=== PATIENT | female | born 1950 | race Caucasian/White ===

== ENCOUNTER 2020-02-21 15:49 | Inpatient (IN) | payer MEDICARE, OTHER, SELFPAY ==
[2020-02-21] VITALS (9 sets, daily range): BP systolic 113–141; BP diastolic 38–68; PULSE 75–100; RESP 16–22; TEMP 36.7–37.4; O2SAT 100; BMI 29.8
[2020-02-21] MEDS: ondansetron HCL 4 MG/2 ML VIAL IVPUSH ×2 (17:06→20:54)
[2020-02-21] MEDS: 0.9 % Sodium Chloride 1,000 ML 999 ML IVCONT (17:06)
--- NOTE | 2020-02-21 17:06 | ED.NAVMDI ---
HPI - Nausea/Vomiting/Diarrhea General Chief complaint: Nausea/Vomiting/Diarrhea Stated complaint: BODY ACHES, N/V Time Seen by Provider: 02/21/20 16:13 Source: patient Mode of arrival: ambulatory Limitations: no limitations History of Present Illness HPI Narrative: patient been feeling weak nauseated vomiting several times for last 5 days without significant abdominal pain. Patient feels very weak and pale. Constipated for last 1 week also noticed black stool off and on for last few weeks specially last week patient had never had rectal bleeding before had colonoscopies years ago which was negative never had any gastritis never had any blood transfusion the past MD elicited complaint: nausea and vomiting Onset (ago): day(s) (5) Description of vomiting: food contents and watery Associated nausea: Yes Location of pain: none Associated symptoms: malaise, nausea/vomiting and fatigue Related Data Home Medications Medication Instructions Recorded Confirmed gabapentin 1,200 mg PO DAILY 02/21/20 02/21/20 lorazepam 1 mg PO TID PRN 02/21/20 02/21/20 ondansetron 4 mg PO Q8H PRN 02/21/20 02/21/20 quetiapine [Seroquel] 25 mg PO BID PRN 02/21/20 02/21/20 sumatriptan succinate [Imitrex] 100 mg PO DAILY PRN 02/21/20 02/21/20 Allergies Allergy/AdvReac Type Severity Reaction Status Date / Time No Known Allergies Allergy Unverified 01/02/20 16:29 Review of Systems Review of Systems: REVIEW OF SYSTEMS: Pertinent positives and negatives are stated above in the history. GEN: no fevers, chills, fatigue ++ HEENT: no nasal congestion, sore throat, ear pain NEURO: no headache, dizziness, focal weakness PULM: no cough, shortness of breath CV: no chest pain, palpitations, LE edema ABD: no abdominal pain, , diarrhea : no dysuria, urgency, frequency SKIN: no rash ROS otherwise negative x 10 Gastrointestinal: Gastrointestinal: Reports nausea PMFSH Past Medical History Medical History Bipolar 1 disorder Migraine Social History Social History Household Members: Spouse Housing: House Alcohol intake: current Alcohol intake frequency: 0-2 drinks per day Alcohol type: wine Smoking Status: Never smoker Use of substances other than those prescribed or required for medical reasons: Yes Substance Use Type: Marijuana Substance Use Type Other:: Edible gummy Substance Use Frequency: Occasionally Last Used Substance: Unknown Have you been hit, kicked, punched, or otherwise hurt by someone within the past year? If so, by whom?: No Do you feel safe in your current relationship?: Yes Is there a partner from a previous relationship who is making you feel unsafe now?: No Are you made to feel afraid or neglected: No Advance Directives: No Advance Directives Information Provided: Yes Advance Directives on File: No Do you have thoughts of harming others: None Do you have a plan to hurt others: No Plan Recently lost weight without trying: No Physical Exam Vital Signs: Vital Signs: Last Vital Signs Temp 98.2 F 02/21/20 20:30 Pulse 89 02/21/20 22:59 Resp 22 H 02/21/20 22:59 BP 141/65 H 02/21/20 22:59 Pulse Ox 100 02/21/20 22:59 Body Mass Index 29.8 VITAL SIGNS: Reviewed. GENERAL: Well developed, well nourished, in no acute distress. HEAD: Normocephalic/atraumatic, EYES: PERRLA pallor +++, No icterus OROPHARYNX: Oral mucosa moist no oral lesions NECK: Supple, no adenopathy LUNGS: Normal breath sounds. No adventitious sounds or accessory muscle use CARDIOVASCULAR: Regular rate and rhythm without noted murmurs, no JVD or lower extremity edema. ABDOMEN: Soft, non-tender, non-distended with normal bowel sounds. No rigidity. No guarding. No palpable masses or hernias noted rectal exam: no stool sample on finger MUSCULOSKELETAL: No tenderness, deformities, EXTREMITIES: No cyanosis or edema. SKIN: no rashes , severe pallor with loss of hand crease color NEUROLOGIC: Alert and oriented x 3. Strength and sensation to light touch were grossly intact normal speech Course Course Course Narrative: patient with severe anemia etiology is not very clear your patient has history of melena but rectal exam was without any stool in the rectum. Patient had colonoscopy in the past which was negative patient denies any upper GI symptoms. Will give patient a blood transfusion plan to admit to ICU and GI to follow MDM - Nausea/Vomiting/Diarrhea MDM Narrative Medical decision making narrative: patient with melena per history with hemoglobin of 2.9 etiology is not very clear will admit to ICU needs at least 5 units of blood transfusion and GI workup will also start her on Protonix Lab Data Result diagrams: 02/21/20 16:58 02/21/20 16:58 Labs: Lab Results 02/21/20 02/21/20 02/21/20 Range/Units 16:58 16:58 16:58 WBC 11.0 H (4.8-10.8) X10*3/uL RBC TNP Hgb 2.9 L* (12.0-16.0) g/dl Hct TNP MCV TNP MCH TNP MCHC TNP RDW TNP Plt Count TNP MPV TNP Immature Gran % (Auto) Cancelled Neut % (Auto) Cancelled Lymph % (Auto) Cancelled [place] % (Auto) Cancelled Eos % (Auto) Cancelled Baso % (Auto) Cancelled Lymph # (Auto) Cancelled [place] # (Auto) Cancelled Eos # (Auto) Cancelled Baso # (Auto) Cancelled Abs Immat Gran (auto) Cancelled Absolute Neuts (auto) Cancelled Absolute Nucleated RBC 0.220 H (0.0-0.012) X10*3/uL Nucleated RBC % (auto) 2.0 H (0.0-0.2) /100WBC Neutrophils % (Manual) 84 H (45-73) % Band Neutrophils % 0 L (3-5) % Lymphocytes % (Manual) 11 L (20-40) % Monocytes % (Manual) 4 (2-11) % Myelocytes % 1 % Abs Neuts (Manual) 9.2 H (2.2-7.9) X10*3/uL Lymphocytes # (Manual) 1.2 (0.6-4.8) X10*3/uL Monocytes # (Manual) 0.4 (0.0-1.2) X10*3/uL Myelocytes # 0.1 X10*/uL Platelet Estimate SLIGHTLY INCREASED (NORMAL) Plt Morphology Comment NORMAL Microcytosis 3+ PT 15.8 H (10.8-13.0) SEC INR 1.3 H (0.9-1.1) APTT 25.1 (24.1-38.0) SEC Sodium 143 (135-145) mmol/L Potassium 3.6 (3.3-5.1) mmol/l Chloride 110 H (96-108) mmol/L Carbon Dioxide 24 (22-29) mmol/L Anion Gap 13 (12-20) BUN 15 (9-16) mg/dL Creatinine 0.71 (0.5-1.4) mg/dL Estim Creat Clear Calc 82.7 Estimated GFR > 60 Random Glucose 136 H (60-115) mg/dL Calcium 7.7 L (8.4-10.2) mg/dL Total Bilirubin 0.7 (0.0-1.0) mg/dL Direct Bilirubin 0.5 (0.0-0.5) mg/dL AST 60 H (5-31) U/L ALT 85 H (0-31) U/L Alkaline Phosphatase 94 (39-117) U/L Total Protein 5.8 L (6.5-8.0) g/dL Albumin 3.8 (3.5-5.0) g/dL Lipase 20 (8-78) U/L Coronavirus (PCR) (Negative) Blood Type Antibody Screen Crossmatch 02/21/20 02/21/20 Range/Units 16:58 18:08 WBC (4.8-10.8) X10*3/uL RBC Hgb (12.0-16.0) g/dl Hct MCV MCH MCHC RDW Plt Count MPV Immature Gran % (Auto) Neut % (Auto) Lymph % (Auto) [place] % (Auto) Eos % (Auto) Baso % (Auto) Lymph # (Auto) [place] # (Auto) Eos # (Auto) Baso # (Auto) Abs Immat Gran (auto) Absolute Neuts (auto) Absolute Nucleated RBC (0.0-0.012) X10*3/uL Nucleated RBC % (auto) (0.0-0.2) /100WBC Neutrophils % (Manual) (45-73) % Band Neutrophils % (3-5) % Lymphocytes % (Manual) (20-40) % Monocytes % (Manual) (2-11) % Myelocytes % % Abs Neuts (Manual) (2.2-7.9) X10*3/uL Lymphocytes # (Manual) (0.6-4.8) X10*3/uL Monocytes # (Manual) (0.0-1.2) X10*3/uL Myelocytes # X10*/uL Platelet Estimate (NORMAL) Plt Morphology Comment Microcytosis PT (10.8-13.0) SEC INR (0.9-1.1) APTT (24.1-38.0) SEC Sodium (135-145) mmol/L Potassium (3.3-5.1) mmol/l Chloride (96-108) mmol/L Carbon Dioxide (22-29) mmol/L Anion Gap (12-20) BUN (9-16) mg/dL Creatinine (0.5-1.4) mg/dL Estim Creat Clear Calc Estimated GFR Random Glucose (60-115) mg/dL Calcium (8.4-10.2) mg/dL Total Bilirubin (0.0-1.0) mg/dL Direct Bilirubin (0.0-0.5) mg/dL AST (5-31) U/L ALT (0-31) U/L Alkaline Phosphatase (39-117) U/L Total Protein (6.5-8.0) g/dL Albumin (3.5-5.0) g/dL Lipase (8-78) U/L Coronavirus (PCR) NEGATIVE (Negative) Blood Type AB Positive Antibody Screen NEGATIVE Crossmatch See Detail Critical Care Time Critical Care Time Critical Care Time: Yes Total Critical Care Time: 40 Attestation: critical care involved patient care Discharge Plan Discharge Clinical Impression: Severe anemia GI (gastrointestinal bleed) Qualifiers: GI bleed type/associated pathology: melena Qualified Code(s): K92.1 - Melena Patient Disposition: Admitted As Inpatient Interventions: Admission Worksheet (ED) Last Done: 02/21/20 22:31 Discharge Date/Time: 02/21/20 22:20
[2020-02-21 17:20] LABS: INTERNATIONAL NORM RATIO 1.3 (0.9-1.1); Prothrombin Time 15.8 SEC (10.8-13.0)
[2020-02-21 17:23] LABS: Partial Thromboplastin Time 25.1 SEC (24.1-38.0)
[2020-02-21 17:37] LABS: Alanine Aminotransferase 85 U/L (0-31); Albumin Level 3.8 g/dL (3.5-5.0); Alkaline Phosphatase 94 U/L (39-117); Anion Gap 13 (12-20); Aspartate Amino Transferase 60 U/L (5-31); Bilirubin Direct 0.5 mg/dL (0.0-0.5); Bilirubin Total 0.7 mg/dL (0.0-1.0); Blood Urea Nitrogen 15 mg/dL (9-16); Calcium 7.7 mg/dL (8.4-10.2); Carbon Dioxide 24 mmol/L (22-29); Chloride 110 mmol/L (96-108); Creatinine Clr Calc Pharmacy 82.7; Estimated Glomerular Filt Rate > 60; Glucose Random 136 mg/dL (60-115); Lipase 20 U/L (8-78); Potassium 3.6 mmol/l (3.3-5.1); Sodium 143 mmol/L (135-145); Total Protein 5.8 g/dL (6.5-8.0)
--- NOTE | 2020-02-21 17:55 | PC.NURSE ---
PROVIDER UNABLE TO OBTAIN STOOL [place]. PLAN FOR T AND S
[2020-02-21 18:09] LABS: SARS COV2 PCR INHOUSE NEGATIVE (Negative)
[2020-02-21] MEDS: Pantoprazole Sodium 40 MG/10 ML VIAL 80 MG IVPUSH (18:14)
[2020-02-21 18:32] LABS: Hemoglobin 2.9 g/dl (12.0-16.0)
[2020-02-21 18:42] LABS: Lymphocytes Absolute Manual 1.2 X10*3/uL (0.6-4.8); Lymphocytes Percent Manual 11 % (20-40); Monocytes Absolute Manual 0.4 X10*3/uL (0.0-1.2); Monocytes Percent Manual 4 % (2-11); Myelocytes Absolute 0.1 X10*/uL; Myelocytes Percent 1 %; Neutrophils Percent Manual 84 % (45-73)
[2020-02-21 18:43] LABS: Microcytosis 3+
[2020-02-21 18:48] LABS: Band Neutrophils Percent 0 % (3-5); Neutrophils Absolute Manual 9.2 X10*3/uL (2.2-7.9)
[2020-02-21 19:49] LABS: Platelet Estimate SLIGHTLY INCREASED (NORMAL)
[2020-02-21 19:50] LABS: Platelet Morphology Comment NORMAL
--- NOTE | 2020-02-21 19:55 | P.HPCC_ITS ---
History of Present Illness Date of Service: 02/21/20 Chief Complaint: n/v Patient is a 69-year-old female with a past medical history of Bipolar disorder and migraines. She came to the ED tonight because she has had 6 days of nausea and vomiting, she describes her vomitus as a white gelatinous substance, she denies a fever or abdominal pain but endorses chills. Pt states she has only been able to tolerate popsicles for the last 6 days. She also states for the past few months she has had on and off black stools for the past few months, she states they turn black when she gets constipated. She says she has been constipated all week, her last BM was 5 days ago despite giving herself 2 enemas and taking Ducolax this morning. Pt states she has had some dizziness and sob on exertion over the last week. She denies taking NSAIDS. She did have a tele health call with her primary care provider 2 days ago, she was prescribed Zofran which helped with the nausea. She denies drinking more than 1 drink per day and states she has an even been drinking at all lately as her has been ill. She states she has had 2 colonoscopies, both were normal and her last one was 6 years ago. She has never had an upper endoscopy. Labs in the ED revealed a hemoglobin of 2.9, hematocrit and platelets were unable to be performed by the lab. We will redraw a CBC upon arrival to the ICU. PT 15.8, INR 1.3, AST 60, ALT 85. Type and screen were done and pt signed off on transfusion. Pt will be admitted to the ICU for transfusion. Review of Systems Review of Systems: Constitutional: No Weight loss, No Fever, + Chills, No Night Sweats, + Fatigue, No Malaise Cardiovascular: No Chest Pain, No SOB, No Dyspnea on Exertion, No Orthopnea, No Edema, No Palpitations Respiratory: No Cough, No Sputum, No Wheezing, No Smoke Exposure, No Dyspnea Gastrointestinal: + Nausea, + Vomiting, No Diarrhea, + Constipation, No abdominal Pain, No Hematochezia, + Melena Genitourinary: no irregular bleeding, No Dysuria, No Urinary Frequency, No Hematuria, No Urinary Incontinence, No Urgency, No Flank Pain, No Urinary Flow Changes, No Hesitancy Musculoskeletal: No joint pain, No Myalgias, No Joint Swelling Skin: No Skin Lesions, No rash Neuro: + Weakness, No Numbness, No Paresthesias, No Loss of Consciousness, + Dizziness, No Headache Yes all other systems are reviewed and are negative [facility] Past Medical History Medical History Bipolar 1 disorder Migraine Family History Family history: reviewed and not pertinent Social History Social History Household Members: Spouse Housing: House Alcohol intake: current Alcohol intake frequency: 0-2 drinks per day Alcohol type: wine Smoking Status: Never smoker Use of substances other than those prescribed or required for medical reasons: Yes Substance Use Type: Marijuana Substance Use Type Other:: Edible gummy Substance Use Frequency: Occasionally Last Used Substance: Unknown Have you been hit, kicked, punched, or otherwise hurt by someone within the past year? If so, by whom?: No Do you feel safe in your current relationship?: Yes Is there a partner from a previous relationship who is making you feel unsafe now?: No Are you made to feel afraid or neglected: No Advance Directives: No Advance Directives Information Provided: Yes Advance Directives on File: No Do you have thoughts of harming others: None Do you have a plan to hurt others: No Plan Recently lost weight without trying: No Meds Allergies Allergy/AdvReac Type Severity Reaction Status Date / Time No Known Allergies Allergy Unverified 01/02/20 16:29 Home Medications Medication Instructions Recorded Confirmed Type gabapentin 1,200 mg PO DAILY 02/21/20 02/21/20 History lorazepam 1 mg PO TID PRN 02/21/20 02/21/20 History ondansetron 4 mg PO Q8H PRN 02/21/20 02/21/20 History quetiapine [Seroquel] 25 mg PO BID PRN 02/21/20 02/21/20 History sumatriptan succinate [Imitrex] 100 mg PO DAILY PRN 02/21/20 02/21/20 History Physical Exam Vital Signs: Vital Signs: Last Vital Signs Temp 98.2 F 02/21/20 16:02 Pulse 93 02/21/20 18:50 Resp 18 02/21/20 18:50 BP 128/68 02/21/20 18:50 Pulse Ox 100 02/21/20 18:26 Body Mass Index 29.8 Const: General: cooperative, comfortable and no acute distress Nutritional Appearance: obese Orientation/consciousness: patient oriented x3 Limitations: no limitations HENMT: Head: Yes normal to inspection Mouth: mucous membranes dry Eyes: Conjunctivae: conjunctival abnormal (pallor) bilateral Pupils: Equal, round and reactive pupils present EOM: EOMs intact bilaterally Neck: Neck: Yes normal visual inspection, Yes full ROM and Yes supple Resp: Effort & Inspection: normal respiratory effort and able to speak in complete sentences Auscultation: no crackles, no rales, no rhonchi and no wheezes Cardio: Rate: regular rate Rhythm: regular rhythm Heart sounds: normal S1 and S2 GI: Inspection: Yes normal to inspection and Yes obesity Palpation (GI): Soft to palpation, nontender and no guarding Auscultation: Hypoactive bowel sounds present Skin: General skin exam: pallor Neuro: General: patient oriented x3 Cranial nerves: Yes Equal, round and reactive pupils present Extrem: General: Yes normal to inspection, Yes no pedal edema and No cyanosis Psych: Appearance: grossly normal Results Labs CBC and Chem 7: 02/22/20 03:11 02/21/20 16:58 Labs: Laboratory Results - last 24 hr 02/21/20 02/21/20 02/21/20 16:58 16:58 16:58 MCV TNP MCH TNP MCHC TNP RDW TNP Plt Count TNP MPV TNP Immature Gran % (Auto) Cancelled Neut % (Auto) Cancelled Lymph % (Auto) Cancelled [place] % (Auto) Cancelled Eos % (Auto) Cancelled Baso % (Auto) Cancelled Lymph # (Auto) Cancelled [place] # (Auto) Cancelled Eos # (Auto) Cancelled Baso # (Auto) Cancelled Abs Immat Gran (auto) Cancelled Absolute Neuts (auto) Cancelled Absolute Nucleated RBC 0.220 H Nucleated RBC % (auto) 2.0 H Neutrophils % (Manual) 84 H Band Neutrophils % 0 L Lymphocytes % (Manual) 11 L Monocytes % (Manual) 4 Myelocytes % 1 Abs Neuts (Manual) 9.2 H Lymphocytes # (Manual) 1.2 Monocytes # (Manual) 0.4 Myelocytes # 0.1 Platelet Estimate SLIGHTLY INCREASED Plt Morphology Comment NORMAL Microcytosis 3+ PT 15.8 H INR 1.3 H APTT 25.1 Anion Gap 13 Estim Creat Clear Calc 82.7 Estimated GFR > 60 Random Glucose 136 H Calcium 7.7 L Total Bilirubin 0.7 Direct Bilirubin 0.5 AST 60 H ALT 85 H Alkaline Phosphatase 94 Total Protein 5.8 L Albumin 3.8 Lipase 20 Coronavirus (PCR) Blood Type Antibody Screen Crossmatch 02/21/20 02/21/20 16:58 18:08 MCV MCH MCHC RDW Plt Count MPV Immature Gran % (Auto) Neut % (Auto) Lymph % (Auto) [place] % (Auto) Eos % (Auto) Baso % (Auto) Lymph # (Auto) [place] # (Auto) Eos # (Auto) Baso # (Auto) Abs Immat Gran (auto) Absolute Neuts (auto) Absolute Nucleated RBC Nucleated RBC % (auto) Neutrophils % (Manual) Band Neutrophils % Lymphocytes % (Manual) Monocytes % (Manual) Myelocytes % Abs Neuts (Manual) Lymphocytes # (Manual) Monocytes # (Manual) Myelocytes # Platelet Estimate Plt Morphology Comment Microcytosis PT INR APTT Anion Gap Estim Creat Clear Calc Estimated GFR Random Glucose Calcium Total Bilirubin Direct Bilirubin AST ALT Alkaline Phosphatase Total Protein Albumin Lipase Coronavirus (PCR) NEGATIVE Blood Type AB Positive Antibody Screen NEGATIVE Crossmatch See Detail Assessment and Plan (1) Severe anemia: Status: Acute Ordered 5 units RBC, one unit per [address] Saldivar. Lasix in between if needed. Follow CBC. (2) GI (gastrointestinal bleed): Qualifiers: GI bleed type/associated pathology: melena Qualified Code(s): K92.1 - Melena Status: Acute Consult to GI for EGD tomorrow.
--- NOTE | 2020-02-21 20:43 | PC.NURSE ---
ICU PA D/C'D IV FLUIDS WHILE IN ROOM. PT ONLY RECEIVED 100CC'S OF HER NS BOLUS.
--- NOTE | 2020-02-21 22:09 | PC.NURSE ---
REPORT GIVEN TO RN IN ICU AT 2135, PT READY FOR TRANSPORT. PT WILL BE TRANSPORTED BY [facility] MOMENTARILY.
[2020-02-21 22:24] LABS: Glucose Urine UA NEG (NEG); Leukocyte Esterase Urine NEG (NEG); Nitrite Urine NEG (NEG); PH 5.5 (5.0-8.0); Specific Gravity - Urine 1.025 (1.005-1.025); Urine Blood NEG (NEG); Urine Ketones 5 MG/DL (NEG); Urine Protein NEG (NEG-TRACE)
[2020-02-21 22:53] LABS: Appearance Urine CLEAR; Color Urine YELLOW
[2020-02-21] MEDS: 0.9 % Sodium Chloride Flush 3 ML SYRINGE IVFLUSH (23:33)
[2020-02-21] MEDS: LORazepam 1 MG TABLET PO (23:38)
[2020-02-22] VITALS (23 sets, daily range): BP systolic 114–151; BP diastolic 65–83; PULSE 61–79; RESP 13–23; TEMP 35.9–37.4; O2SAT 93–100; BMI 30.3
--- NOTE | 2020-02-22 | CT_ITS ---
EXAMINATION: CT ABDOMEN AND PELVIS WITH CONTRAST CLINICAL INFORMATION: Gastrointestinal hemorrhage. COMPARISON: None TECHNIQUE: Multidetector volumetric images were obtained from the superior aspect of the liver through the pubic symphysis following administration 85 mL of Omnipaque 350 intravenous contrast. Oral contrast was given. Sagittal and coronal reformatted images were obtained on the technologist's workstation. Oral contrast: No This CT examination was performed using dose optimization techniques as appropriate, variously including the following: *Automated exposure control *Adjustment of mA and/or kV according to patient size (this includes techniques or standardized protocols for targeted exams where dose is matched to indication/reason for exam; i.e. extremities or head) *Use of iterative reconstruction technique DLP: 638 mGy-cm FINDINGS: LUNG BASES: The visualized lung bases are unremarkable. LIVER, GALLBLADDER, AND BILIARY TREE: The liver is normal in size, shape, and attenuation. No focal hepatic lesion or biliary ductal dilatation is present. The gallbladder is unremarkable with no evidence of radiopaque gallstones, gallbladder wall thickening, or obvious pericholecystic inflammatory changes. PANCREAS: Unremarkable. SPLEEN: Unremarkable. ADRENAL GLANDS: Unremarkable. KIDNEYS AND URETERS: The kidneys are normal in size, shape, and attenuation. No hydronephrosis, hydroureter, or calculi seen. No perinephric stranding. 1.3 cm sharply marginated hypodense cortical lesion at the anterior inferior pole of the right kidney. This has a density measurement of 17 Hounsfield units, likely renal cysts. BLADDER: Unremarkable. GASTROINTESTINAL TRACT: There are scattered diverticula of the sigmoid and left colon. There is no diverticulitis. There is no bowel wall thickening /edema. There is no bowel obstruction. There is a moderate volume of stool in the colon. The appendix is normal . The small bowel loops are unremarkable. Wall the gastric antrum is slightly thickened. This could be due to a focal gastritis or due to underdistention. There is no edema around the stomach. There is moderate-sized hiatal hernia. Mesentery: No free air or free fluid. No inflammation. ABDOMINAL WALL: No significant hernia is appreciated. LYMPH NODES: Normal. VASCULAR: Unremarkable. PELVIC VISCERA: Unremarkable. OSSEOUS STRUCTURES: Unremarkable. CT/CT abdomen pelvis w con IMPRESSION: There is mild thickening of the wall of the gastric antrum. This can be due to underdistention however a focal gastritis is not excluded. There is no edema however around the stomach. The fat planes throughout the abdomen and pelvis are normal. There is diverticulosis of the colon but no diverticulitis.
[2020-02-22] MEDS: ondansetron HCL 4 MG/2 ML VIAL IVPUSH (00:19)
[2020-02-22] MEDS: Furosemide 40 MG/4 ML VIAL IVPUSH (03:44)
[2020-02-22] MEDS: LORazepam 2 MG/ML VIAL 1 MG IVPUSH (03:44)
[2020-02-22 03:47] LABS: Mean Corpuscular HGB Conc 28.3 g/dl (31.0-35.0); Mean Corpuscular Hemoglobin 19.3 pg (27.0-33.0); Mean Corpuscular Volume 68.2 fL (80-98); Platelet Count 342 X10*3/uL (160-400); White Blood Count 9.1 X10*3/uL (4.8-10.8)
[2020-02-22 03:56] LABS: NRBC Pct Auto 2.5 /100WBC (0.0-0.2); PLT ABN DIST 1
[2020-02-22 03:58] LABS: Hemoglobin 5.4 g/dl (12.0-16.0)
[2020-02-22 04:02] LABS: SLIDE REVIEW MANUAL DIFF
[2020-02-22 04:39] LABS: Band Neutrophils Percent 1 % (3-5); Basophils Abs Manual 0.2 X10*3/uL (0.0-0.3); Basophils Percent Manual 2 % (0-1); Lymphocytes Percent Manual 11 % (20-40); Microcytosis 3+; Monocytes Absolute Manual 0.5 X10*3/uL (0.0-1.2); Monocytes Percent Manual 5 % (2-11); Neutrophils Absolute Manual 7.5 X10*3/uL (2.2-7.9); Neutrophils Percent Manual 81 % (45-73); Nucleated Red Blood Cells 6 /100WBC (0-0); RBC Morphology NOTED
[2020-02-22 04:40] LABS: Acanthocytes 1+; Hypochromasia 3+; Platelet Estimate NORMAL (NORMAL); Platelet Morphology Comment NORMAL; Polychromasia 1+
--- NOTE | 2020-02-22 06:49 | PC.NURSE ---
CARE ASSUMED 23;15...AWAKE..ALERT..ORIENTED X3..SPEECH CLEAR..PETERSEN..ANXIOUS...PO ATIVAN AT HS PER ICU RAG INSPECTOR...C/O NAUSEA AFTERWARDS..MEDICATED WITH PRN ZOFRAN PER EMAR...2ND UNIT PRBC INFUSED W/O INCIDENT...NSR...VSS...MEDICATED WITH LASIX 40MG IV X1 POST-2ND UNIT PRBC...DELVALLE INSERTED PER RAG INSPECTOR...ANXIOUS R/T DELVALLE...ATIVAN 1MG IV GIVEN...DIURESED APPROX 2.5 LITERS POST-LASIX...3RD UNIT PRBC INFUSING...2 IV SITES LEFT AC D/C'D...NEW #20 ANGIO STARTED TO LEFT HAND..FOR F/U LAB-WORK POST PRBC INFUSION...C/O DISCOMFORT FROM DELVALLE ..PER ICU RAG INSPECTOR DELVALLE D/C'D THIS AM PER PATIENT REQUEST
[2020-02-22] MEDS: 0.9 % Sodium Chloride Flush 3 ML SYRINGE IVFLUSH ×2 (07:55→16:17)
[2020-02-22 08:58] LABS: Basophils Percent Auto 0.5 % (0-2); Eosinophils Percent Auto 0.5 % (0-4); Imm Gran Pct Auto 1.2 % (0.0-0.4); Lymphocytes Percent Auto 14.5 % (20-40)
[2020-02-22 09:00] LABS: Hematocrit 23.3 % (37-47); Lymphocytes Absolute Auto 1.2 X10*3/uL (1.2-4.9); Mean Corpuscular Hemoglobin 21.1 pg (27.0-33.0); Mean Corpuscular Volume 70.2 fL (80-98); Monocytes Absolute Auto 0.7 X10*3/uL (0.1-1.2); Monocytes Percent Auto 8.5 % (2-11); NRBC Pct Auto 1.8 /100WBC (0.0-0.2); Neutrophils Absolute Auto 6.2 X10*3/uL (2.0-8.3); Neutrophils Percent Auto 74.8 % (45-73); Platelet Count 315 X10*3/uL (160-400); Red Blood Count 3.32 X10*6/uL (4.20-5.50); White Blood Count 8.3 X10*3/uL (4.8-10.8)
[2020-02-22 09:10] LABS: RBC Morphology NOTED
[2020-02-22 09:20] LABS: Anion Gap 12 (12-20); Blood Urea Nitrogen 12 mg/dL (9-16); Calcium 7.6 mg/dL (8.4-10.2); Carbon Dioxide 26 mmol/L (22-29); Chloride 106 mmol/L (96-108); Creatinine Clr Calc Pharmacy 81.1; Estimated Glomerular Filt Rate > 60; Glucose Random 97 mg/dL (60-115); INTERNATIONAL NORM RATIO 1.3 (0.9-1.1); Sodium 141 mmol/L (135-145)
--- NOTE | 2020-02-22 09:22 | P.CNGI_ITS ---
History of Present Illness Data of Consult Service Date: 02/22/20 Requesting physician: Ramana Saldivar Primary Care Provider: Cheryl Hull MD HPI Reason for consult: GI Bleeding, severe anemia 69 YF with bipolar diosrder and Migraine HAs presented to [facility] on 02/21/2020 with nausea vomiting and intermittent black stools for the past several weeks: Patient been feeling weak nauseated vomiting several times for last 5 days without significant abdominal pain. Patient feels very weak and pale. Constipated for last 1 week also noticed black stool off and on for last few weeks specially last week patient had never had rectal bleeding before Had colonoscopies years ago which was negative never had any gastritis never had any blood transfusion the past Patient gives history of nausea and vomiting off and on for the past several weeks. She describes her vomitus as a white gelatinous substance without blood or coffee ground material. She has noted worsening heartburn over the past week. She denies a fever or abdominal pain and notes some chills. Pt states she has only been able to tolerate popsicles for the last 6 days. Patient gives a history of chronic constipation which has been worse over the past few months. She previously had a bowel movement daily and now having a bowel movement once a week. Stool has been intermittently black without red blood. Her last BM was 5 days ago despite giving herself 2 enemas and taking Ducolax this morning. Pt states she has had some dizziness and sob on exertion over the last week. She admits to losing some weight over the past few weeks. Pt takes Imitrex and excedrin prn for Migraine HAs intermittently. She did have a tele health call with her primary care provider 2 days ago, she was prescribed Zofran which helped with the nausea. She denies drinking more than 1 drink per day and states she has not been drinking at all lately as her has been ill. Labs in the ED revealed a hemoglobin of 2.9, PT 15.8, INR 1.3, AST 60, ALT 85. Pt was admitted to the ICU and transfused 3 U PRBC overnigh and repeat H&H is 7 and 23.3 this morning. Patient denies major cardiac or pulmonary problems She admits to loud snoring and reports having a negative sleep study for sleep apnea. Denies problems with anesthesia in the past. Denies being on chronic anticoagulation. Patient denies known family history of colon polyps, colon cancer or other GI malignancies. PAST EGD/COLONOSCOPY: Pt reports having a Colonoscopy 15 yrs ago and another colonoscopy 6 yrs ago at [facility] - negative per pt - Records have been requested Patient denies having an endoscopy in the past. Review of Systems Constitutional: Constitutional: Reports chills, Denies fever(s), Reports headache(s), Reports poor appetite and Reports weight loss Eyes: Eyes: Denies eye discharge and Denies irritation ENT: Reports Normal hearing present, Denies dysphagia, Reports dizziness and Reports headache(s) Cardiovascular: Cardiovascular: Denies chest pain, Denies leg edema and Denies dyspnea on exertion Respiratory: Respiratory: Denies cough and Denies dyspnea on exertion Gastrointestinal: Gastrointestinal: Denies abdominal pain, Reports change in bowel habits, Reports constipation, Denies dysphagia and Reports heartburn Genitourinary: Genitourinary: Denies difficulty voiding and Denies dysuria Musculoskeletal: Musculoskeletal: Denies back pain and Denies arthralgias Integumentary/Breasts: Skin/Breast: Denies pruritus, Denies rash and Denies jaundice Neurologic: Reports Normal hearing present, Denies Abnormal speech present, Reports dizziness, Reports headache(s) and Denies seizure-like activity Psychiatric: Psychiatric: Denies anxiety, Denies depression, Denies panic attacks and Reports other ( Bipolar disorder) Endocrine: Endocrine: Denies cold intolerance, Denies flushing and Denies heat intolerance PMFSH Past Medical History Medical History Bipolar 1 disorder Migraine Family History Family history: reviewed and not pertinent Social History Social History (Updated 02/22/20 @ 12:23 by Yvette Gomez MD) Household Members: Spouse Housing: House Alcohol intake: current Alcohol intake frequency: 0-2 drinks per day Alcohol type: wine Smoking Status: Never smoker Use of substances other than those prescribed or required for medical reasons: Yes Substance Use Type: Marijuana Substance Use Type Other:: Edible gummy Substance Use Frequency: Occasionally Last Used Substance: Unknown Have you been hit, kicked, punched, or otherwise hurt by someone within the past year? 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 Meds Allergies Allergy/AdvReac Type Severity Reaction Status Date / Time No Known Allergies Allergy Unverified 01/02/20 16:29 Home Medications Medication Instructions Recorded Confirmed Type gabapentin 1,200 mg PO DAILY 02/21/20 02/21/20 History lorazepam 1 mg PO TID PRN 02/21/20 02/21/20 History ondansetron 4 mg PO Q8H PRN 02/21/20 02/21/20 History quetiapine [Seroquel] 25 mg PO BID PRN 02/21/20 02/21/20 History sumatriptan succinate [Imitrex] 100 mg PO DAILY PRN 02/21/20 02/21/20 History Physical Exam Vital Signs: Vital Signs: Last Vital Signs Temp 97.9 F 02/22/20 08:00 Pulse 61 02/22/20 09:00 Resp 17 02/22/20 09:00 BP 131/73 02/22/20 09:00 Pulse Ox 100 02/22/20 09:00 Body Mass Index 30.3 Const: General: cooperative, healthy appearing (appears pale) and no acute distress Nutritional Appearance: average body habitus Orientation/consciousness: patient oriented x3 Limitations: no limitations HENMT: Head: Yes normal to inspection Ears: hearing grossly normal bilaterally Mouth: Normal oral and palatal mucosa present Eyes: Sclerae: sclerae normal Pupils: Equal, round and reactive pupils present Neck: Neck: Yes normal visual inspection Chest: Chest palpation & inspection: normal inspection of the chest Resp: Effort & Inspection: normal respiratory effort Auscultation: clear to auscultation bilaterally Cardio: Palpation: normal PMI Rate: regular rate Rhythm: regular rhythm Heart sounds: S1 normal heart sound present, S2 normal heart sound present and no murmurs GI: Palpation (GI): Soft to palpation, nontender and No hepatosplenomegaly present Auscultation: normal bowel sounds Rectal Exam - Female: deferred Skin: General skin exam: no rashes or lesions noted Neuro: General: patient oriented x3, gait normal and moves all extremities Cranial nerves: Yes Equal, round and reactive pupils present and Yes Normal hear ing present Speech: No Abnormal speech present Psych: Appearance: grossly normal Mental Status: mental status grossly normal Results Labs CBC & Chem 7: 02/22/20 17:14 02/22/20 08:36 Labs: Short CBC 02/21/20 02/22/20 02/22/20 Range/Units 16:58 03:11 08:36 WBC 11.0 H 9.1 8.3 (4.8-10.8) X10*3/uL Hgb 2.9 L* 5.4 L* D 7.0 L* D (12.0-16.0) g/dl Hct TNP 19.1 L* 23.3 L D Plt Count TNP 342 315 BMP 02/21/20 02/22/20 16:58 08:36 Sodium 143 141 Potassium 3.6 3.0 L Chloride 110 H 106 Carbon Dioxide 24 26 BUN 15 12 Creatinine 0.71 0.73 Calcium 7.7 L 7.6 L Liver Function 02/21/20 Range/Units 16:58 Total Bilirubin 0.7 (0.0-1.0) mg/dL Direct Bilirubin 0.5 (0.0-0.5) mg/dL AST 60 H (5-31) U/L ALT 85 H (0-31) U/L Alkaline Phosphatase 94 (39-117) U/L Albumin 3.8 (3.5-5.0) g/dL Urine 02/21/20 Range/Units 22:06 Urine Color YELLOW Urine Appearance CLEAR Urine pH 5.5 (5.0-8.0) Ur Specific [place] 1.025 (1.005-1.025) Urine Protein NEG (NEG-TRACE) MG/DL Urine Glucose (UA) NEG (NEG) MG/DL Assessment and Plan (1) Severe anemia: Status: Acute (2) GI (gastrointestinal bleed): Qualifiers: GI bleed type/associated pathology: melena Qualified Code(s): K92.1 - Melena Status: Acute 69 YF with bipolar disorder and migraine headaches admitted with nausea vomiting, worsening heartburn, poor p.o. intake, worsening constipation and intermittent black stools. Labs revealed severe anemia with hemoglobin of 2.9, microcytosis and hypochromia. Patient is hemodynamically stable. Severe anemia can be due to upper GI source (PUD, erosive esophagitis, UGI AVMs) or lower GI etiology (large colon polyp/mass or colonic AVMs). RECOMMENDATIONS: 1. Monitor H & H twice daily x 24 hrs and continue IV PPI. 2. Obtain abdomen pelvic CT scan to rule out colonic mass. 3. Patient needs further evaluation with upper endoscopy and colonoscopy. Both procedures and potential complications including bleeding, perforation, drug reaction, aspiration and misdiagnosis were reviewed with the patient and .
[2020-02-22] MEDS: Potassium Chloride Packet 20 MEQ PACKET 40 MEQ PO (10:58)
[2020-02-22] MEDS: Lactated Ringers 1,000 ML 100 ML IVCONT ×3 (11:17→21:34)
--- NOTE | 2020-02-22 12:14 | PM.CCPN ---
Subjective Subjective Date of Service: 02/22/20 Interval History: Mrs. Vásquez was admitted to ICU last night bec of severe anemia. The patient is a 69-year-old female with a past medical history of Bipolar disorder and migraines. She came to the ED yest afternoon because she has had 6 days of nausea and vomiting, mostly white, no blood or black. Denied fever or abdominal pain. Minimal po intake last 6 days. She reports GRAHAM, lightheadedness, and intermit black stools since December. Last BM was 5 days ago despite giving herself 2 enemas and taking Ducolax. Denied taking NSAIDS, altho she did take Excedrin for [place]BIT[place] 2-3 times/week. She did have a tele health call with her primary care provider 2 days ago, she was prescribed Zofran which helped with the nausea. She denies drinking more than 1 drink per day, none at all recently. She?s had 2 colonoscopies, says both were normal, last one was 6 years ago. She?s never had an upper endoscopy. In the ED, HR was 89-100, BP was 114/38, breathing easy w Sat 100% on room air. Abdo was benign. Labs in the ED revealed a hemoglobin of 2.9, INR 1.3, plat 300s, chemistries unremarkable except for AST/ALT 60/85. BUN/creat 15/0.7, bicarb was 34. She was admitted to the ICU for transfusion. Hb after the second unit RBCs was 5.4. She was given Lasix and then a third unit RBCs, after which Hb was 7.0 this morning. This morning she is fully awake and alert and appropriate. Breathing easy, with sat 100% on room air. Heart rate 74, blood pressure 151/83. No JVD at 30 degrees. Abdomen is benign. No edema. LABORATORY DATA (after the 3rd unit of blood): As below. IMPRESSION: 1. Severe anemia. Hemoglobin now up to 7 after slow transfusion of 3 units. I would director government the need for further transfusion based on clinical and symptomatic criteria. No need for a fourth unit right at this time. 2. Based on the history, it sounds like a slow upper GI bleed is the source of her anemia. There?s no evidence that she?s currently bleeding or, in fact, that she?s had any bleeding over the last week. Workup plan is for CT with contrast today, followed by EGD and colonoscopy tomorrow. 3. She?s been euvolemic throughout (based on hemodynamics and renal indices). 4. No evidence of sepsis or other infection. Stable for transfer to med-surg. I?ve signed to Dr. Gutierrez Time (including extended history w patient and , ila d/w ila Hernandez d/w Dr. Gutierrez, and consultation with Dr. Gomez): 85 min ([id number]) Physical Exam Vital Signs: Vital Signs: Last Vital Signs Temp 97.9 F 02/22/20 08:00 Pulse 74 02/22/20 11:52 Resp 16 02/22/20 11:52 BP 151/83 H 02/22/20 11:52 Pulse Ox 98 02/22/20 11:52 Body Mass Index 30.3 Objective Data Labs CBC & Chem 7: 02/22/20 08:36 02/22/20 08:36 Labs: Laboratory Results - last 24 hr 02/21/20 02/21/20 02/21/20 16:58 16:58 16:58 WBC 11.0 H RBC TNP Hgb 2.9 L* Hct TNP MCV TNP MCH TNP MCHC TNP RDW TNP Plt Count TNP MPV TNP Immature Gran % (Auto) Cancelled Neut % (Auto) Cancelled Lymph % (Auto) Cancelled [place] % (Auto) Cancelled Eos % (Auto) Cancelled Baso % (Auto) Cancelled Lymph # (Auto) Cancelled [place] # (Auto) Cancelled Eos # (Auto) Cancelled Baso # (Auto) Cancelled Abs Immat Gran (auto) Cancelled Absolute Neuts (auto) Cancelled Absolute Nucleated RBC 0.220 H Nucleated RBC % (auto) 2.0 H Neutrophils % (Manual) 84 H Band Neutrophils % 0 L Lymphocytes % (Manual) 11 L Monocytes % (Manual) 4 Basophils % (Manual) Myelocytes % 1 Abs Neuts (Manual) 9.2 H Lymphocytes # (Manual) 1.2 Monocytes # (Manual) 0.4 Basophils # (Manual) Myelocytes # 0.1 Nucleated RBCs Platelet Estimate SLIGHTLY INCREASED Plt Morphology Comment NORMAL RBC Morphology NOTED Polychromasia Hypochromasia Microcytosis 3+ Acanthocytes (Spur) Smear Tech's Comments PT 15.8 H INR 1.3 H APTT 25.1 Sodium 143 Potassium 3.6 Chloride 110 H Carbon Dioxide 24 Anion Gap 13 BUN 15 Creatinine 0.71 Estim Creat Clear Calc 82.7 Estimated GFR > 60 Random Glucose 136 H Calcium 7.7 L Total Bilirubin 0.7 Direct Bilirubin 0.5 AST 60 H ALT 85 H Alkaline Phosphatase 94 Total Protein 5.8 L Albumin 3.8 Lipase 20 Urine Color Urine Appearance Urine pH Ur Specific [place] Urine Protein Urine Glucose (UA) Urine Ketones Urine Blood Urine Nitrite Ur Leukocyte Esterase Coronavirus (PCR) Blood Type Antibody Screen Crossmatch 02/21/20 02/21/20 02/21/20 16:58 18:08 22:06 WBC RBC Hgb Hct MCV MCH MCHC RDW Plt Count MPV Immature Gran % (Auto) Neut % (Auto) Lymph % (Auto) [place] % (Auto) Eos % (Auto) Baso % (Auto) Lymph # (Auto) [place] # (Auto) Eos # (Auto) Baso # (Auto) Abs Immat Gran (auto) Absolute Neuts (auto) Absolute Nucleated RBC Nucleated RBC % (auto) Neutrophils % (Manual) Band Neutrophils % Lymphocytes % (Manual) Monocytes % (Manual) Basophils % (Manual) Myelocytes % Abs Neuts (Manual) Lymphocytes # (Manual) Monocytes # (Manual) Basophils # (Manual) Myelocytes # Nucleated RBCs Platelet Estimate Plt Morphology Comment RBC Morphology Polychromasia Hypochromasia Microcytosis Acanthocytes (Spur) Smear Tech's Comments PT INR APTT Sodium Potassium Chloride Carbon Dioxide Anion Gap BUN Creatinine Estim Creat Clear Calc Estimated GFR Random Glucose Calcium Total Bilirubin Direct Bilirubin AST ALT Alkaline Phosphatase Total Protein Albumin Lipase Urine Color YELLOW Urine Appearance CLEAR Urine pH 5.5 Ur Specific [place] 1.025 Urine Protein NEG Urine Glucose (UA) NEG Urine Ketones 5 Urine Blood NEG Urine Nitrite NEG Ur Leukocyte Esterase NEG Coronavirus (PCR) NEGATIVE Blood Type AB Positive Antibody Screen NEGATIVE Crossmatch See Detail 02/22/20 02/22/20 02/22/20 03:11 08:36 08:36 WBC 9.1 8.3 RBC 2.80 L 3.32 L Hgb 5.4 L* D 7.0 L* D Hct 19.1 L* 23.3 L D MCV 68.2 L 70.2 L MCH 19.3 L 21.1 L MCHC 28.3 L 30.0 L RDW TNP Not Reportable Plt Count 342 315 MPV TNP Not Reportable Immature Gran % (Auto) Cancelled 1.2 H Neut % (Auto) Cancelled 74.8 H Lymph % (Auto) Cancelled 14.5 L [place] % (Auto) Cancelled 8.5 Eos % (Auto) Cancelled 0.5 Baso % (Auto) Cancelled 0.5 Lymph # (Auto) Cancelled 1.2 [place] # (Auto) Cancelled 0.7 Eos # (Auto) Cancelled 0.0 Baso # (Auto) Cancelled 0.0 Abs Immat Gran (auto) Cancelled 0.10 H Absolute Neuts (auto) Cancelled 6.2 Absolute Nucleated RBC 0.230 H 0.150 H Nucleated RBC % (auto) 2.5 H 1.8 H Neutrophils % (Manual) 81 H Band Neutrophils % 1 L Lymphocytes % (Manual) 11 L Monocytes % (Manual) 5 Basophils % (Manual) 2 H Myelocytes % Abs Neuts (Manual) 7.5 Lymphocytes # (Manual) 1.0 Monocytes # (Manual) 0.5 Basophils # (Manual) 0.2 Myelocytes # Nucleated RBCs 6 H Platelet Estimate NORMAL Plt Morphology Comment NORMAL RBC Morphology NOTED Polychromasia 1+ Hypochromasia 3+ Microcytosis 3+ Acanthocytes (Spur) 1+ Smear Tech's Comments MANUAL DIFF PT 15.0 H INR 1.3 H APTT Sodium Potassium Chloride Carbon Dioxide Anion Gap BUN Creatinine Estim Creat Clear Calc Estimated GFR Random Glucose Calcium Total Bilirubin Direct Bilirubin AST ALT Alkaline Phosphatase Total Protein Albumin Lipase Urine Color Urine Appearance Urine pH Ur Specific [place] Urine Protein Urine Glucose (UA) Urine Ketones Urine Blood Urine Nitrite Ur Leukocyte Esterase Coronavirus (PCR) Blood Type Antibody Screen Crossmatch 02/22/20 08:36 WBC RBC Hgb Hct MCV MCH MCHC RDW Plt Count MPV Immature Gran % (Auto) Neut % (Auto) Lymph % (Auto) [place] % (Auto) Eos % (Auto) Baso % (Auto) Lymph # (Auto) [place] # (Auto) Eos # (Auto) Baso # (Auto) Abs Immat Gran (auto) Absolute Neuts (auto) Absolute Nucleated RBC Nucleated RBC % (auto) Neutrophils % (Manual) Band Neutrophils % Lymphocytes % (Manual) Monocytes % (Manual) Basophils % (Manual) Myelocytes % Abs Neuts (Manual) Lymphocytes # (Manual) Monocytes # (Manual) Basophils # (Manual) Myelocytes # Nucleated RBCs Platelet Estimate Plt Morphology Comment RBC Morphology Polychromasia Hypochromasia Microcytosis Acanthocytes (Spur) Smear Tech's Comments PT INR APTT Sodium 141 Potassium 3.0 L Chloride 106 Carbon Dioxide 26 Anion Gap 12 BUN 12 Creatinine 0.73 Estim Creat Clear Calc 81.1 Estimated GFR > 60 Random Glucose 97 Calcium 7.6 L Total Bilirubin Direct Bilirubin AST ALT Alkaline Phosphatase Total Protein Albumin Lipase Urine Color Urine Appearance Urine pH Ur Specific [place] Urine Protein Urine Glucose (UA) Urine Ketones Urine Blood Urine Nitrite Ur Leukocyte Esterase Coronavirus (PCR) Blood Type Antibody Screen Crossmatch Progress Note: A&P Time Spent With Patient Time: Total time spent is greater than 50% in coordination of care (as documented) at patient's floor/unit and/or counseling patient: Total time spent with greater than 50% in coordination of care (as documented) at patient's floor/unit and/or counseling patient:: 0
[2020-02-22] MEDS: SUMAtriptan succinate 100 MG TABLET PO (12:56)
[2020-02-22] MEDS: Pantoprazole Sodium 40 MG/10 ML VIAL IVPUSH ×2 (12:57→17:57)
--- NOTE | 2020-02-22 13:40 | MHC.CM.PN ---
pt lives c her in their home. she reports being independent in her own care. she drives a car and is retired. she has an adult child that lives close by and can offer help if she needs it. her can also offer help if she needs it. at this time patient denies the need for vna at [facility]. pt's will provide transportation home at [facility]. [facility] plan is home no svcs. cm to cont. to follow.
[2020-02-22] MEDS: iohexoL 350 MG/ML 100 ML INFUS..BTL IV (15:25)
[2020-02-22] MEDS: Diatrizoate Meglumine, Sodium 30 ML SOLUTION PO (15:26)
[2020-02-22] MEDS: bisacodyL 5 MG TABLET.DR 10 MG PO ×2 (16:15→17:58)
[2020-02-22] MEDS: PEG 3350/Na Sulf,Bicarb,Cl/KCL 4,000 ML SOLN.RECON 4000 ML PO (16:20)
[2020-02-22 17:50] LABS: Hematocrit 25.6 % (37-47); Hemoglobin 7.5 g/dl (12.0-16.0)
--- NOTE | 2020-02-22 18:47 | PM.EVENT ---
Event Note Event Note: Floor team follow up S Seen and examined this evening No abdominal pain, some bloating. Moving her bowels with her golytely prep. Denies bright red blood or melena. Reports she takes seroquel/ativan/gabapentin at bedtime endorses ibuprofen usage 4 times a week (2 OTC ibuprofen day, about 4 days a week) along with excederine migranes. Denies heavy EtOH. Reports 2 prior colonscopies -- last 1 5 years ago, negative. No upper endo. Denies FH of GI tract CA. O Vitals - last documented and stable Gen - NAD, comfortable CVS - S1S2 Lungs - Clear Abd - soft and non tender Ext - no edema Neuro - AAOx3 Skin - some what pale A/P Symptomatic anemia without any evidence of acute blood loss, although probable chronic blood loss. CT done -- possible some focal gastritis IV PPI colon prep clears tonight, npo after midnight; scopes tomorrow repeat h/h stable -- recheck tomorrow continue IVF ativan for anxiety
[2020-02-22] MEDS: LORazepam 1 MG TABLET PO (20:51)
[2020-02-23] VITALS (11 sets, daily range): BP systolic 112–130; BP diastolic 46–72; PULSE 58–73; RESP 16–20; TEMP 36.1–36.9; O2SAT 94–100
[2020-02-23] MEDS: 0.9 % Sodium Chloride Flush 3 ML SYRINGE IVFLUSH (00:16)
[2020-02-23] MEDS: Pantoprazole Sodium 40 MG/10 ML VIAL IVPUSH (05:38)
[2020-02-23] MEDS: Lactated Ringers 1,000 ML 100 ML IVCONT (07:51)
--- NOTE | 2020-02-23 09:00 | P.CONAN_ITS ---
HPI - Anesthesia Eval Consult details Narrative: acute severe anemia [facility] Past Medical History Medical History Bipolar 1 disorder Migraine Social History Social History (Updated 02/22/20 @ 12:23 by Yvette Gomez MD) Household Members: Spouse Housing: House Alcohol intake: current Alcohol intake frequency: 0-2 drinks per day Alcohol type: wine Smoking Status: Never smoker Use of substances other than those prescribed or required for medical reasons: Yes Substance Use Type: Marijuana Substance Use Type Other:: Edible gummy Substance Use Frequency: Occasionally Last Used Substance: Unknown Have you been hit, kicked, punched, or otherwise hurt by someone within the past year? 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 Meds Allergies Allergy/AdvReac Type Severity Reaction Status Date / Time No Known Allergies Allergy Unverified 01/02/20 16:29 Home Medications Medication Instructions Recorded Confirmed Type gabapentin 1,200 mg PO DAILY 02/21/20 02/21/20 History lorazepam 1 mg PO TID PRN 02/21/20 02/21/20 History ondansetron 4 mg PO Q8H PRN 02/21/20 02/21/20 History quetiapine [Seroquel] 25 mg PO BID PRN 02/21/20 02/21/20 History sumatriptan succinate [Imitrex] 100 mg PO DAILY PRN 02/21/20 02/21/20 History Exam Exam Date and Time: February 23, 2020 0900 Height,Weight and Vital Signs: Height 5 ft 6 in Weight 85.2 kg Last Vital Signs Temp 97.6 F 02/23/20 07:52 Pulse 72 02/23/20 07:52 Resp 17 02/23/20 07:52 BP 130/72 02/23/20 07:52 Pulse Ox 96 02/23/20 07:52 Pertinent Lab Results Pertinent Lab Results: Laboratory Tests 02/21/20 02/21/20 02/21/20 16:58 16:58 16:58 WBC 11.0 H RBC TNP Hgb 2.9 L* Hct TNP MCV TNP MCH TNP MCHC TNP RDW TNP Plt Count TNP MPV TNP Immature Gran % (Auto) Cancelled Neut % (Auto) Cancelled Lymph % (Auto) Cancelled [place] % (Auto) Cancelled Eos % (Auto) Cancelled Baso % (Auto) Cancelled Lymph # (Auto) Cancelled [place] # (Auto) Cancelled Eos # (Auto) Cancelled Baso # (Auto) Cancelled Abs Immat Gran (auto) Cancelled Absolute Neuts (auto) Cancelled Absolute Nucleated RBC 0.220 H Nucleated RBC % (auto) 2.0 H Neutrophils % (Manual) 84 H Band Neutrophils % 0 L Lymphocytes % (Manual) 11 L Monocytes % (Manual) 4 Basophils % (Manual) Myelocytes % 1 Abs Neuts (Manual) 9.2 H Lymphocytes # (Manual) 1.2 Monocytes # (Manual) 0.4 Basophils # (Manual) Myelocytes # 0.1 Nucleated RBCs Platelet Estimate SLIGHTLY INCREASED Plt Morphology Comment NORMAL RBC Morphology NOTED Polychromasia Hypochromasia Microcytosis 3+ Acanthocytes (Spur) Smear Tech's Comments PT 15.8 H INR 1.3 H APTT 25.1 Sodium 143 Potassium 3.6 Chloride 110 H Carbon Dioxide 24 Anion Gap 13 BUN 15 Creatinine 0.71 Estim Creat Clear Calc 82.7 Estimated GFR > 60 Random Glucose 136 H Calcium 7.7 L Total Bilirubin 0.7 Direct Bilirubin 0.5 AST 60 H ALT 85 H Alkaline Phosphatase 94 Total Protein 5.8 L Albumin 3.8 Lipase 20 Urine Color Urine Appearance Urine pH Ur Specific [place] Urine Protein Urine Glucose (UA) Urine Ketones Urine Blood Urine Nitrite Ur Leukocyte Esterase Coronavirus (PCR) Blood Type Antibody Screen Crossmatch 02/21/20 02/21/20 02/21/20 16:58 18:08 22:06 WBC RBC Hgb Hct MCV MCH MCHC RDW Plt Count MPV Immature Gran % (Auto) Neut % (Auto) Lymph % (Auto) [place] % (Auto) Eos % (Auto) Baso % (Auto) Lymph # (Auto) [place] # (Auto) Eos # (Auto) Baso # (Auto) Abs Immat Gran (auto) Absolute Neuts (auto) Absolute Nucleated RBC Nucleated RBC % (auto) Neutrophils % (Manual) Band Neutrophils % Lymphocytes % (Manual) Monocytes % (Manual) Basophils % (Manual) Myelocytes % Abs Neuts (Manual) Lymphocytes # (Manual) Monocytes # (Manual) Basophils # (Manual) Myelocytes # Nucleated RBCs Platelet Estimate Plt Morphology Comment RBC Morphology Polychromasia Hypochromasia Microcytosis Acanthocytes (Spur) Smear Tech's Comments PT INR APTT Sodium Potassium Chloride Carbon Dioxide Anion Gap BUN Creatinine Estim Creat Clear Calc Estimated GFR Random Glucose Calcium Total Bilirubin Direct Bilirubin AST ALT Alkaline Phosphatase Total Protein Albumin Lipase Urine Color YELLOW Urine Appearance CLEAR Urine pH 5.5 Ur Specific [place] 1.025 Urine Protein NEG Urine Glucose (UA) NEG Urine Ketones 5 Urine Blood NEG Urine Nitrite NEG Ur Leukocyte Esterase NEG Coronavirus (PCR) NEGATIVE Blood Type AB Positive Antibody Screen NEGATIVE Crossmatch See Detail 02/22/20 02/22/20 02/22/20 03:11 08:36 08:36 WBC 9.1 8.3 RBC 2.80 L 3.32 L Hgb 5.4 L* D 7.0 L* D Hct 19.1 L* 23.3 L D MCV 68.2 L 70.2 L MCH 19.3 L 21.1 L MCHC 28.3 L 30.0 L RDW TNP Not Reportable Plt Count 342 315 MPV TNP Not Reportable Immature Gran % (Auto) Cancelled 1.2 H Neut % (Auto) Cancelled 74.8 H Lymph % (Auto) Cancelled 14.5 L [place] % (Auto) Cancelled 8.5 Eos % (Auto) Cancelled 0.5 Baso % (Auto) Cancelled 0.5 Lymph # (Auto) Cancelled 1.2 [place] # (Auto) Cancelled 0.7 Eos # (Auto) Cancelled 0.0 Baso # (Auto) Cancelled 0.0 Abs Immat Gran (auto) Cancelled 0.10 H Absolute Neuts (auto) Cancelled 6.2 Absolute Nucleated RBC 0.230 H 0.150 H Nucleated RBC % (auto) 2.5 H 1.8 H Neutrophils % (Manual) 81 H Band Neutrophils % 1 L Lymphocytes % (Manual) 11 L Monocytes % (Manual) 5 Basophils % (Manual) 2 H Myelocytes % Abs Neuts (Manual) 7.5 Lymphocytes # (Manual) 1.0 Monocytes # (Manual) 0.5 Basophils # (Manual) 0.2 Myelocytes # Nucleated RBCs 6 H Platelet Estimate NORMAL Plt Morphology Comment NORMAL RBC Morphology NOTED Polychromasia 1+ Hypochromasia 3+ Microcytosis 3+ Acanthocytes (Spur) 1+ Smear Tech's Comments MANUAL DIFF PT 15.0 H INR 1.3 H APTT Sodium Potassium Chloride Carbon Dioxide Anion Gap BUN Creatinine Estim Creat Clear Calc Estimated GFR Random Glucose Calcium Total Bilirubin Direct Bilirubin AST ALT Alkaline Phosphatase Total Protein Albumin Lipase Urine Color Urine Appearance Urine pH Ur Specific [place] Urine Protein Urine Glucose (UA) Urine Ketones Urine Blood Urine Nitrite Ur Leukocyte Esterase Coronavirus (PCR) Blood Type Antibody Screen Crossmatch 02/22/20 02/22/20 08:36 17:14 WBC RBC Hgb 7.5 L Hct 25.6 L MCV MCH MCHC RDW Plt Count MPV Immature Gran % (Auto) Neut % (Auto) Lymph % (Auto) [place] % (Auto) Eos % (Auto) Baso % (Auto) Lymph # (Auto) [place] # (Auto) Eos # (Auto) Baso # (Auto) Abs Immat Gran (auto) Absolute Neuts (auto) Absolute Nucleated RBC Nucleated RBC % (auto) Neutrophils % (Manual) Band Neutrophils % Lymphocytes % (Manual) Monocytes % (Manual) Basophils % (Manual) Myelocytes % Abs Neuts (Manual) Lymphocytes # (Manual) Monocytes # (Manual) Basophils # (Manual) Myelocytes # Nucleated RBCs Platelet Estimate Plt Morphology Comment RBC Morphology Polychromasia Hypochromasia Microcytosis Acanthocytes (Spur) Smear Tech's Comments PT INR APTT Sodium 141 Potassium 3.0 L Chloride 106 Carbon Dioxide 26 Anion Gap 12 BUN 12 Creatinine 0.73 Estim Creat Clear Calc 81.1 Estimated GFR > 60 Random Glucose 97 Calcium 7.6 L Total Bilirubin Direct Bilirubin AST ALT Alkaline Phosphatase Total Protein Albumin Lipase Urine Color Urine Appearance Urine pH Ur Specific [place] Urine Protein Urine Glucose (UA) Urine Ketones Urine Blood Urine Nitrite Ur Leukocyte Esterase Coronavirus (PCR) Blood Type Antibody Screen Crossmatch Airway Mallampati Class: II TM Dist: >3cm Neck ROM: Full Heart: RRR Lungs: CTA Assessment and Plan Assessment Anesthesia Assessment: Anesthesia Plan Discussed and Chart Reviewed Final Anesthetic Review NPO: Yes ASA Class: II Final Preanesthetic Review: No Changes in Pt Med Stat, Meds/Allgs Chart Reviewed, Consent Obtained/Reviewed and Anes Risks/Benef Reviewed Patient Risk: Intermediate Procedure Risk: Low Anesthetic Plan Anesthetic Plan: MAC: Disposition: Standard PACU
--- NOTE | 2020-02-23 09:05 | MHC.SHP ---
Pre-Procedural Eval Section A The patient is an INPATIENT: Yes Changes since office visit: Yes Patient answered all questions The History & Physical has been completed within 30 days and I have reviewed it.: Yes Section B Chief Complaint: Severe Anemia Allergies: Allergies Allergy/AdvReac Type Severity Reaction Status Date / Time No Known Allergies Allergy Unverified 01/02/20 16:29 Plan Patient has been examined and remains a candidate for the planned procedure
--- NOTE | 2020-02-23 09:06 | MHC.CM.PN ---
Pt to discharge home today with no services. Pt will self arrange transportation.
[2020-02-23 09:49] LABS: Hematocrit 23.5 % (37-47); Mean Corpuscular HGB Conc 29.4 g/dl (31.0-35.0); Mean Corpuscular Volume 71.6 fL (80-98); PLT CLUMP 1; Red Blood Count 3.28 X10*6/uL (4.20-5.50)
[2020-02-23 10:26] LABS: NRBC Pct Auto 1.3 /100WBC (0.0-0.2); PLT ABN DIST 1; Platelet Count 285 X10*3/uL (160-400); White Blood Count 7.8 X10*3/uL (4.8-10.8)
--- NOTE | 2020-02-23 10:27 | PC.NURSE ---
Iv to left hand was dc'd by floor RN before transfer to OR for endoscopy. Post procedure left hand puffy in appearance with. Rings are tight on fingers to left hand, nut cap refill is WNL. New IV was placed by anesthesia (Dr Deshpande) at 0910 prior to procedure start
[2020-02-23 10:30] LABS: Hemoglobin 6.9 g/dl (12.0-16.0)
--- NOTE | 2020-02-23 11:14 | HO.PM.IMPN ---
Subjective Subjective Date of Service: 02/23/20 Interval History: seen and examined this AM post procedures feeling a bit tired and still some mile GRAHAM denies cp or sob ROS General - no fevers or chills Cardiovascular - no chest pain Respiratory - no shortness of breath or cough Abdominal- no abdominal pain, nausea, vomiting, diarrhea Physical Exam Vital Signs: Vital Signs: Last Vital Signs Temp 97 F 02/23/20 10:19 Pulse 61 02/23/20 10:33 Resp 18 02/23/20 10:33 BP 112/55 L 02/23/20 10:33 Pulse Ox 98 02/23/20 10:33 Body Mass Index 30.3 General - no acute distress, appears comfortable Cardiovascular - regular rate and rhythm, S1-S2 Lungs - normal respiratory effort, clear to auscultation bilaterally, no wheezing Abdomen - soft, nontender, no rebound regarding Extremities - no edema bilaterally Neuro - awake and alert, no focal deficits Objective Data Labs CBC & Chem 7: 02/23/20 09:10 02/22/20 08:36 Assessment and Plan (1) Severe anemia: Status: Acute Assessment and Plan: This is a 69 yo F who presented to the hospital with complaints of fatigue and progressive GRAHAM. She was diagnosed with severe anemia (Hb 2.9) upon admission and was subsequently admitted to the ICU where she was given 3 units PRBCs and subsequently transferred out to the floor. She has remained hemodynamically stable (depiste her arrivan hb under 3) her entire hospitalization. 1. Severe symptomatic anemia no evidence of acute blood loss, but clearly some chronic GI bleeding s/p 3 units PRBCs upon admission in the ICU s/p EGD and Colonoscopy -- some mild esophagitis and gastritis but nothing to explained her level of anemia. Capsule endoscopy as outpatient with GI clinic. d/w GI -- Prilosec 20mg daily + PO iron qd upon d/c hb hanging around 7 -- still some mild symptoms of anemia, will give 1 more unit prbc if stable -- d/c home this afternoon. she has been advised to avoid nsaids / Excedrin for her chronic migrane 2. Bipolar / Depression resume her home meds upon d/c 3. Migranes no nsaids / Excedrin as above have told her to f/u with her neurologist for alternative Rx for this Full Code DVT pptx, mechanical dispo: home later this evening if she remains stable
--- NOTE | 2020-02-23 13:05 | W.PM.OPN ---
Operative Note Operative Note Narrative: Date of procedure: 02/23/20 Pre-op diagnosis: Severe anemia Post-op diagnosis: other ( erosive esophagitis, hiatal hernia, gastritis, colonic diverticulosis) Procedure: FLEXIBLE TRANSORAL UPPER GASTROINTESTINAL ENDOSCOPY WITH BIOPSIES AND COLONOSCOPY TILL CECUM UPPER ENDOSCOPY Consent: Indications for the procedure and potential complications of bleeding, perforation, reaction to medications and missed diagnosis were discussed with the patient and informed consent was obtained. Instrument: Olympus GIF H 190 mid size upper endoscope Monitoring: Vital signs and clinical assessment, continuous EKG monitoring, Pulse oximetry, Carbon Dioxide monitoring and blood pressure monitoring were done throughout the procedure. Procedure: The patient was placed in the left lateral decubitis position and pre-procedure medications were administered and a bite block was placed. The endoscope was inserted into the mouth and advanced under direct vision to the third part of duodenum. A careful inspection was made as the upper endoscope was withdrawn including a retroflexed examination of the proximal stomach; Findings and interventions are described below. Findings: Larynx: Normal Esophagus: Tortuous esophagus with increased tertiary contractions. GE junction at 35 cms. A few healing erosions in the distal esophagus. No ulcers or erosions noted in the hiatla hernia sac. Stomach: Mild gastric erythema. Biopsies were obtained. Grade 4 flap valve on retroflexed examination of the cardia. Duodenum: Normal bulb and descending duodenum. Biopsies were obtained from 3rd part of duodenum to check for celiac sprue. Intervention: Biopsies as noted above COLONOSCOPY PROCEDURE NOTE Consent: Indications for the procedure and potential complications of bleeding, perforation, reaction to medications and missed diagnosis were discussed with the patient and informed consent was obtained. Instrument: Olympus PCF H 190 L variable stiffness pediatric colonoscope Monitoring: Vital signs and clinical assessment, intermittent blood pressure monitoring, continuous EKG monitoring, Pulse oximetry and Carbon Dioxide monitoring were done throughout the procedure. Colon withdrawl time was 15 minutes. Procedure: The patient was placed in the left lateral decubitis position and pre-procedure medications were administered. After a digital rectal examination of the ano-rectum, the video colonoscope was inserted into the rectum and advanced through the colon to the cecum. The colonoscope was slowly withdrawn in a retrograde panoramic fashion and the colon mucosa was carefully examined including a retroflexed view of the rectum. Findings and interventions are described below. Procedure Difficulty: Colon was long and tortuous and there was some loop formation. Patient was placed in the supine position and LLQ pressure was applied to intubate the cecum. Findings: Terminal Ileum: Distal 6-7 cm was examined and appeared normal. Cecum: Normal Ascending Colon: Scattered diverticulosis Transverse Colon: Scattered diverticulosis Descending Colon: Moderate diverticulosis Sigmoid Colon: Severe diverticulosis with luminal narrowing Rectum: Normal Ano-rectum: Normal Colon preparation: Good after some irrigation. Impression and Post Procedure Diagnosis: Endoscopy Findings: ESOPHAGUS: Tortuous esophagus with increased tertiary contractions. GE junction at 35 cms. A few healing erosions in the distal esophagus. No ulcers or erosions noted in the hiatla hernia sac. STOMACH: Minimal gastritis. DUODENUM: Normal, biopsied to check for celiac sprue Colonoscopy Findings: No polyps were detected. Moderate to severe diverticulosis seen in the entire colon. No source found for iron deficiency anemia - possibly chronic blood loss from esophagitis versus small bowel ulcers related to Ibuprofen use. Plan: Await pathology results Patient will be scheduled for a Capsule Endoscopy as an outpatient to look for small bowel source of bleeding. Patient was advised to stop Ibuprofen/excedrin use and take oral iron once daily. Repeat Colonoscopy in 10 years. Above findings were reviewed with the patient. Surgeon: Yvette Gomez MD Anesthesia: MAC (Dr Deshpande) Compensation Consulting Manager: Ebony Mello Estimated blood loss (mL): 0 Pathology: other (A. Small bowel, B. Gastric antrum) Condition: stable Disposition: floor
--- NOTE | 2020-02-23 16:45 | PM.DS ---
DS: Providers Provider Date of admission: 02/21/20 19:48 Primary care physician: Cheryl Hull MD DS: Diagnosis Discharge Diagnosis (1) Symptomatic anemia: Status: Acute (2) Chronic gastrointestinal bleeding: Status: Acute (3) Bipolar depression: Status: Acute DS: Summary Hospital Course Hospital Course: patient presented to the hospital with complaints of generalized weakness and fatigue along with exertional dyspnea along with intermittent black tarry stools Over the last few months. Her blood work in the emergency room showed a hemoglobin of 2.9. she was admitted overnight to the intensive care unit for close monitoring as well as packed red cell transfusion. She was given a total of 3 units with improvement in her H&H to 7.5/25.6. She was also seen by Gastroenterology and on the next day he underwent a upper endoscopy and colonoscopy which did not have any source of active bleeding but did show: Endoscopy Findings: ESOPHAGUS: Tortuous esophagus with increased tertiary contractions. GE junction at 35 cms. A few healing erosions in the distal esophagus. No ulcers or erosions noted in the hiatla hernia sac. STOMACH: Minimal gastritis. DUODENUM: Normal, biopsied to check for celiac sprue Colonoscopy Findings: No polyps were detected. Moderate to severe diverticulosis seen in the entire colon. No source found for iron deficiency anemia - possibly chronic blood loss from esophagitis versus small bowel ulcers related to Ibuprofen use. postprocedure, her diet was advanced to solids which she tolerated. She had no signs of bleeding. And was hemodynamically stable. She will be discharged home with Prilosec in iron once a day. She is to follow up with the [facility] for capsule endoscopy to be scheduled. Time Spent with Patient Time attestation: Total time spent providing and/or coordinating discharge services: Physical Exam Vital Signs: Vital Signs: Last Vital Signs Temp 98.1 F 02/23/20 15:25 Pulse 73 02/23/20 15:25 Resp 18 02/23/20 15:25 BP 119/71 02/23/20 15:25 Pulse Ox 98 02/23/20 15:25 Body Mass Index 30.3 General - no acute distress, appears comfortable Cardiovascular - regular rate and rhythm, S1-S2 Lungs - normal respiratory effort, clear to auscultation bilaterally, no wheezing Abdomen - soft, nontender, no rebound regarding Extremities - no edema bilaterally Neuro - awake and alert, no focal deficits DS: Data Data Completed and Pending Pending studies at discharge: Pending at discharge 02/23/20 09:49 Surgical [PTH] Routine Labs on day of discharge: 02/21/20 16:13 IV insert/maintain .Now 02/21/20 16:14 ondansetron HCL [Zofran] 4 mg IVPUSH ONCE ONE 02/21/20 16:15 0.9 % Sodium Chloride [Ns] 1,000 ml IVCONT 999 mls/hr 02/21/20 16:58 Basic Metabolic Panel Stat Lipase Stat Liver Panel Stat Partial Thromboplastin Time Stat Prothrombin Time INR Stat SARS COV2 PCR INHOUSE Stat 02/21/20 17:49 Pantoprazole Sodium [Protonix] 80 mg IVPUSH ONCE ONE 02/21/20 18:55 Consult Rx Perform Med Rec 1 each MISCELLANE ONCE PRN 02/21/20 19:48 Cont. Telemetry w/Vital Sign limit ICU Q4HR Intake and Output Q1HR Vital Signs Q1HR 02/21/20 20:32 ondansetron HCL [Zofran] 4 mg IVPUSH ONCE ONE 02/21/20 22:06 UA CC w/rflx Micro + Cult Stat 02/21/20 23:15 LORazepam [Ativan] 1 mg PO BEDTIME 02/21/20 23:55 ondansetron HCL [Zofran] 4 mg IVPUSH Q6H PRN 02/22/20 CT abdomen pelvis w con Stat 02/22/20 00:00 0.9 % Sodium Chloride Flush [NS Flush] 3 ml IVFLUSH QSHIFT 02/22/20 03:07 Furosemide [Lasix] 40 mg IVPUSH ONCE ONE 02/22/20 03:09 Burch catheter [Insert/maintain urinary catheter] NOW 02/22/20 03:11 Complete Blood Count Man Dif Routine SLIDE REVIEW Routine 02/22/20 03:19 LORazepam [Ativan] 1 mg PO ONCE ONE 02/22/20 03:31 LORazepam [Ativan] 1 mg IVPUSH ONCE ONE 02/22/20 08:36 Basic Metabolic Panel Routine Complete Blood Count Auto Diff Routine Prothrombin Time INR Routine 02/22/20 10:32 Potassium Chloride Packet [Klor-Con Packet] 40 meq PO ONCE STA 02/22/20 11:01 SUMAtriptan succinate [Imitrex] 100 mg PO DAILY PRN 02/22/20 11:15 Lactated Ringers [Lr] 1,000 ml IVCONT 100 mls/hr 02/22/20 11:40 Pantoprazole Sodium [Protonix] 40 mg IVPUSH BID@0630,1630 02/22/20 12:15 Lactated Ringers [Lr] 1,000 ml IVCONT 100 mls/hr 02/22/20 12:57 Transfer Order Routine 02/22/20 13:00 Sodium,Potassium Phosphates [Phos-NaK] 2 packet PO ONCE 02/22/20 13:30 bisacodyL [Dulcolax] 10 mg PO ONCE ONE 02/22/20 14:00 bisacodyL [Dulcolax] 10 mg PO ONCE ONE 02/22/20 15:00 PEG 3350/Na Sulf,Bicarb,Cl/KCL [Gavilyte-C Solution] 4,000 ml PO ONCE ONE 02/22/20 15:25 iohexoL 350 MG/ML [Omnipaque 350 MG/ML] 100 ml IV ONCE ONE 02/22/20 15:26 Diatrizoate Meglumine, Sodium [Gastrografin 66-10] 30 ml PO ONCE ONE 02/22/20 17:14 Hemoglobin and Hematocrit Routine 02/22/20 18:48 LORazepam [Ativan] 1 mg PO ONCE ONE 02/22/20 Dinner NPO Diet 02/22/20 21:00 LORazepam [Ativan] 1 mg PO BEDTIME 02/23/20 09:02 Transfer Order Routine 02/23/20 09:07 fentaNYL citrate/PF [Sublimaze] 50 mcg .ROUTE .STK-MED ONE 02/23/20 09:09 Lidocaine HCl 1 % MPF [Xylocaine 1 % MPF] 5 ml .ROUTE .STK-MED ONE propofoL [Diprivan] 200 mg IVPUSH .STK-MED ONE 02/23/20 09:10 Complete Blood Count no Diff Stat 02/23/20 09:57 propofoL [Diprivan] 200 mg IVPUSH .STK-MED ONE 02/23/20 09:59 ondansetron HCL [Zofran] 4 mg IVPUSH ONCE PRN 02/23/20 10:00 Continuous pulse oximetry CONT Lactated Ringers [Lr] 1,000 ml IVCONT 50 mls/hr Laboratory Last Values WBC 7.8 X10*3/uL (4.8-10.8) 02/23/20 09:10 RBC 3.28 X10*6/uL (4.20-5.50) L 02/23/20 09:10 Hgb 6.9 g/dl (12.0-16.0) L* 02/23/20 09:10 Hct 23.5 % (37-47) L 02/23/20 09:10 MCV 71.6 fL (80-98) L 02/23/20 09:10 MCH 21.0 pg (27.0-33.0) L 02/23/20 09:10 MCHC 29.4 g/dl (31.0-35.0) L 02/23/20 09:10 RDW Not Reportable 02/23/20 09:10 Plt Count 285 X10*3/uL (160-400) 02/23/20 09:10 MPV Not Reportable 02/23/20 09:10 Immature Gran % (Auto) 1.2 % (0.0-0.4) H 02/22/20 08:36 Neut % (Auto) 74.8 % (45-73) H 02/22/20 08:36 Lymph % (Auto) 14.5 % (20-40) L 02/22/20 08:36 [place] % (Auto) 8.5 % (2-11) 02/22/20 08:36 Eos % (Auto) 0.5 % (0-4) 02/22/20 08:36 Baso % (Auto) 0.5 % (0-2) 02/22/20 08:36 Lymph # (Auto) 1.2 X10*3/uL (1.2-4.9) 02/22/20 08:36 [place] # (Auto) 0.7 X10*3/uL (0.1-1.2) 02/22/20 08:36 Eos # (Auto) 0.0 X10*3/uL (0.0-0.4) 02/22/20 08:36 Baso # (Auto) 0.0 X10*3/uL (0.0-0.2) 02/22/20 08:36 Abs Immat Gran (auto) 0.10 X10*3/uL (0.00-0.03) H 02/22/20 08:36 Absolute Neuts (auto) 6.2 X10*3/uL (2.0-8.3) 02/22/20 08:36 Absolute Nucleated RBC 0.100 X10*3/uL (0.0-0.012) H 02/23/20 09:10 Nucleated RBC % (auto) 1.3 /100WBC (0.0-0.2) H 02/23/20 09:10 Neutrophils % (Manual) 81 % (45-73) H 02/22/20 03:11 Band Neutrophils % 1 % (3-5) L 02/22/20 03:11 Lymphocytes % (Manual) 11 % (20-40) L 02/22/20 03:11 Monocytes % (Manual) 5 % (2-11) 02/22/20 03:11 Basophils % (Manual) 2 % (0-1) H 02/22/20 03:11 Myelocytes % 1 % 02/21/20 16:58 Abs Neuts (Manual) 7.5 X10*3/uL (2.2-7.9) 02/22/20 03:11 Lymphocytes # (Manual) 1.0 X10*3/uL (0.6-4.8) 02/22/20 03:11 Monocytes # (Manual) 0.5 X10*3/uL (0.0-1.2) 02/22/20 03:11 Basophils # (Manual) 0.2 X10*3/uL (0.0-0.3) 02/22/20 03:11 Myelocytes # 0.1 X10*/uL 02/21/20 16:58 Nucleated RBCs 6 /100WBC (0-0) H 02/22/20 03:11 Platelet Estimate NORMAL (NORMAL) 02/22/20 03:11 Plt Morphology Comment NORMAL 02/22/20 03:11 RBC Morphology NOTED 02/22/20 03:11 Polychromasia 1+ 02/22/20 03:11 Hypochromasia 3+ 02/22/20 03:11 Microcytosis 3+ 02/22/20 03:11 Acanthocytes (Spur) 1+ 02/22/20 03:11 Smear Tech's Comments MANUAL DIFF 02/22/20 03:11 PT 15.0 SEC (10.8-13.0) H 02/22/20 08:36 INR 1.3 (0.9-1.1) H 02/22/20 08:36 APTT 25.1 SEC (24.1-38.0) 02/21/20 16:58 Sodium 141 mmol/L (135-145) 02/22/20 08:36 Potassium 3.0 mmol/l (3.3-5.1) L 02/22/20 08:36 Chloride 106 mmol/L (96-108) 02/22/20 08:36 Carbon Dioxide 26 mmol/L (22-29) 02/22/20 08:36 Anion Gap 12 (12-20) 02/22/20 08:36 BUN 12 mg/dL (9-16) 02/22/20 08:36 Creatinine 0.73 mg/dL (0.5-1.4) 02/22/20 08:36 Estim Creat Clear Calc 81.1 02/22/20 08:36 Estimated GFR > 60 02/22/20 08:36 Random Glucose 97 mg/dL (60-115) 02/22/20 08:36 Calcium 7.6 mg/dL (8.4-10.2) L 02/22/20 08:36 Total Bilirubin 0.7 mg/dL (0.0-1.0) 02/21/20 16:58 Direct Bilirubin 0.5 mg/dL (0.0-0.5) 02/21/20 16:58 AST 60 U/L (5-31) H 02/21/20 16:58 ALT 85 U/L (0-31) H 02/21/20 16:58 Alkaline Phosphatase 94 U/L (39-117) 02/21/20 16:58 Total Protein 5.8 g/dL (6.5-8.0) L 02/21/20 16:58 Albumin 3.8 g/dL (3.5-5.0) 02/21/20 16:58 Lipase 20 U/L (8-78) 02/21/20 16:58 Urine Color YELLOW 02/21/20 22:06 Urine Appearance CLEAR 02/21/20 22:06 Urine pH 5.5 (5.0-8.0) 02/21/20 22:06 Ur Specific [place] 1.025 (1.005-1.025) 02/21/20 22:06 Urine Protein NEG MG/DL (NEG-TRACE) 02/21/20 22:06 Urine Glucose (UA) NEG MG/DL (NEG) 02/21/20 22:06 Urine Ketones 5 MG/DL (NEG) 02/21/20 22:06 Urine Blood NEG (NEG) 02/21/20 22:06 Urine Nitrite NEG (NEG) 02/21/20 22:06 Ur Leukocyte Esterase NEG (NEG) 02/21/20 22:06 Coronavirus (PCR) NEGATIVE (Negative) 02/21/20 16:58 Blood Type AB Positive 02/21/20 18:08 Antibody Screen NEGATIVE 02/21/20 18:08 Crossmatch See Detail 02/21/20 18:08 Discharge Plan Discharge Patient Disposition: Home, Self-Care Referrals: Yvette Gomez MD [Physician] - 2 Weeks (Call office to schedule appointment) Cheryl Hull MD [Primary Care Provider] - Discharge Medications: New omeprazole 40 mg capsule,delayed release(DR/EC) 40 mg PO DAILY Qty: 30 RF: 0 ferrous sulfate 325 mg (65 mg iron) tablet 325 mg PO DAILY Qty: 30 RF: 0 ascorbic acid (vitamin C) [Vitamin C] 500 mg tablet 500 mg PO DAILY Qty: 30 RF: 0 polyethylene glycol 3350 [Miralax] 17 gram/dose powder 17 g PO DAILY PRN (Reason: constipation) Qty: 510 RF: 0 Continued quetiapine [Seroquel] 25 mg Tablet 25 mg PO BID PRN (Reason: Anxiety) RF: 0 sumatriptan succinate [Imitrex] 100 mg Tablet 100 mg PO DAILY PRN (Reason: Migraine Headache) RF: 0 lorazepam 1 mg Tablet 1 mg PO TID PRN (Reason: Anxiety) RF: 0 ondansetron 4 mg Tablet,Disintegrating 4 mg PO Q8H PRN (Reason: Nausea) RF: 0 gabapentin 300 mg Tablet 1,200 mg PO DAILY RF: 0 Discharge Orders: Discharge Order (Routine); Ordered 02/23/20 Ordered By: Torin Gutierrez Diet: advance to your usual diet Activity on Discharge: As tolerated Visit Report Forms: Patient Portal Discharge page Care Plan Goals: To feel better and stay out of the hospital Health Concerns: Severe Anemia. Gastritis/Esophagitis. Plan of Treatment: Severe Anemia - take iron pill every day. Take it with vitamin c to help absorb it. Take Miralax if needed as iron pill can cause consitpation. Gastritis/Esophagitis - take Prilosec once a day. Do not take Excedrin, or any other mjdn-aos-qednecs medications daughter NSAIDs such as ibuprofen, Motrin, Aleve, Advil, Naproxen
--- NOTE | 2020-02-24 12:40 | HO.POSTANES ---
Post Anesthesia Evaluation Post Anesthesia Evaluation Anesthesia: Monitored Mental Status: Awake Pain Control: Satisfactory Nausea/Vomiting: None Hydration: Adequate Anesthesia-Related Issues: No Anes. Related Issues
[2020-03-20 21:23] LABS: Hematocrit 19.1 % (37-47)
== END 2020-02-23 18:08 | disposition home or self-care (01) | DRG 379 ==
LOC: HO.ED 19:17 → HO.ICU 20:28 → HO.S3 02-22 13:30
PROVIDERS: Internal Medicine Gastroenterology; Physician Assistant; Admitting Provider Anesthesiology; Emergency Provider Internal Medicine; PCP Family Medicine; Visit Provider Family Medicine
DX: K57.31 Diverticulosis of large intestine without perforation or abscess with bleeding (principal); K29.71 Gastritis, unspecified, with bleeding; G43.909 Migraine, unspecified, not intractable, without status migrainosus; Z20.828 Contact with and (suspected) exposure to other viral communicable diseases; F31.9 Bipolar disorder, unspecified; K44.9 Diaphragmatic hernia without obstruction or gangrene; D50.9 Iron deficiency anemia, unspecified; Z79.899 Other long term (current) drug therapy
CPT/HCPCS: 36415; 36430; 74177; 80048; 80076; 81003; 83690; 85007; 85014; 85018; 85025; 85027; 85610; 85730; 86850; 86900; 86901; 86920; 86923; 88305; 88342; 96361; 96374; 96375; 96376; 99284; 99291; C1758; J1940; J2060; J2405; J3010; P9016; Q9967; U0003

== ENCOUNTER → 2020-03-05 08:00 | Outpatient (BNVA) | payer MEDICARE, OTHER, SELFPAY | PROVIDERS: PCP Family Medicine; Visit Provider Internal Medicine Gastroenterology | DX: Z76.89 Persons encountering health services in other specified circumstances (principal) | CPT/HCPCS: 91110 ==

== ENCOUNTER → 2020-03-17 11:42 | Outpatient (BNVA) | payer MEDICARE, OTHER, SELFPAY | PROVIDERS: PCP Family Medicine; Referring Provider Family Medicine; Visit Provider Internal Medicine Gastroenterology | DX: K92.2 Gastrointestinal hemorrhage, unspecified (principal); D64.9 Anemia, unspecified; R79.89 Other specified abnormal findings of blood chemistry; Z79.899 Other long term (current) drug therapy | CPT/HCPCS: Q3014 ==

== ENCOUNTER → 2020-05-14 12:31 | Outpatient (BNVA) | payer MEDICARE, OTHER, SELFPAY | PROVIDERS: PCP Family Medicine; Visit Provider Internal Medicine Gastroenterology | DX: Z13.89 Encounter for screening for other disorder (principal) | CPT/HCPCS: Q3014 ==

== ENCOUNTER → 2020-08-06 11:46 | Outpatient (BNVA) | payer MEDICARE, OTHER, SELFPAY | PROVIDERS: PCP Family Medicine; Visit Provider Internal Medicine Gastroenterology | DX: D50.0 Iron deficiency anemia secondary to blood loss (chronic) (principal); K92.2 Gastrointestinal hemorrhage, unspecified; R19.7 Diarrhea, unspecified; K59.00 Constipation, unspecified; R79.89 Other specified abnormal findings of blood chemistry; Z79.899 Other long term (current) drug therapy | CPT/HCPCS: 99212 ==

== ENCOUNTER 2022-02-03 12:22 | Outpatient (REF) | payer MEDICARE, OTHER, SELFPAY ==
[2022-02-03 13:47] LABS: Hematocrit 28.4 % (37.0-47.0); Mean Corpuscular HGB Conc 24.3 g/dl (31.0-35.0); Mean Corpuscular Hemoglobin 13.6 pg (27.0-33.0); NRBC Pct Auto 0.2 /100WBC (0.0-0.2); Platelet Count 442 X10*3/uL (160-400); Red Blood Count 5.08 X10*6/uL (4.20-5.50); Red Cell Distribution Width 22.7 % (11.0-16.0); White Blood Count 9.3 X10*3/uL (4.8-10.8)
[2022-02-03 13:55] LABS: Hemoglobin 6.9 g/dl (12.0-16.0); Mean Corpuscular Volume 55.9 fL (80.0-98.0)
[2022-02-03 14:11] LABS: Alanine Aminotransferase 7 U/L (0-31); Albumin Level 4.7 g/dL (3.5-5.0); Alkaline Phosphatase 84 U/L (39-117); Anion Gap 18 (12-20); Aspartate Amino Transferase 14 U/L (5-31); Blood Urea Nitrogen 13 mg/dL (9-16); Calcium 9.6 mg/dL (8.4-10.2); Carbon Dioxide 22 mmol/L (22-29); Chloride 107 mmol/L (96-108); Estimated Glomerular Filt Rate > 60; Glucose Random 115 mg/dL (60-115); Iron 11 mcg/dL (30-160); Percent Iron Saturation 2 % (15-50); Potassium 4.5 mmol/L (3.3-5.1); Sodium 142 mmol/L (135-145); Total Iron Binding Capacity 525 mcg/dL (228-428); Total Protein 7.3 g/dL (6.5-8.0); Unsaturated Iron Binding 514 ug/dL
[2022-02-03 14:26] LABS: Bilirubin Total 0.6 mg/dL (0.0-1.0)
[2022-02-03 14:59] LABS: Ferritin < 1 ng/mL (10-250); Thyroid Stimulating Hormone 0.66 uIU/mL (0.32-4.0)
== END 2022-02-03 12:23 | disposition home or self-care (01) ==
LOC: HO.HMGCLDS 12:22
PROVIDERS: PCP Family Medicine; Visit Provider Family Medicine
DX: R11.2 Nausea with vomiting, unspecified (principal); L66.9 Cicatricial alopecia, unspecified; D64.9 Anemia, unspecified
CPT/HCPCS: 36415; 80053; 82728; 83540; 84443; 85027

== ENCOUNTER 2022-03-07 11:38 | Outpatient (REF) | payer MEDICARE, OTHER, SELFPAY ==
[2022-03-07 13:59] LABS: Basophils Absolute Auto 0.1 X10*3/uL (0.0-0.2); Hemoglobin 10.3 g/dl (12.0-16.0); Imm Gran Abs Auto 0.02 X10*3/uL (0.00-0.03); Imm Gran Pct Auto 0.3 % (0.0-0.4); Lymphocytes Absolute Auto 1.8 X10*3/uL (1.2-4.9); MANUAL DIFF FLAG SCAN; SCAN SMEAR FLAG 1
[2022-03-07 14:01] LABS: Eosinophils Absolute Auto 0.1 X10*3/uL (0.0-0.4); Eosinophils Percent Auto 1.7 % (0-4); Hematocrit 37.8 % (37.0-47.0); Lymphocytes Percent Auto 25.6 % (20-40); Mean Corpuscular HGB Conc 27.2 g/dl (31.0-35.0); Mean Corpuscular Hemoglobin 18.6 pg (27.0-33.0); Mean Corpuscular Volume 68.2 fL (80.0-98.0); Monocytes Absolute Auto 0.6 X10*3/uL (0.1-1.2); Monocytes Percent Auto 7.8 % (2-11); Neutrophils Absolute Auto 4.5 x10*3/uL (2.0-8.3); Neutrophils Percent Auto 63.6 % (45-73); Platelet Count 355 X10*3/uL (160-400); Red Blood Count 5.54 X10*6/uL (4.20-5.50); Red Cell Distribution Width 30.2 % (11.0-16.0); White Blood Count 7.1 X10*3/uL (4.8-10.8)
[2022-03-07 14:08] LABS: PLT ABN DIST 1
[2022-03-07 14:46] LABS: SLIDE REVIEW VERIFIED
== END 2022-03-07 11:39 | disposition home or self-care (01) ==
LOC: HO.HMGCLDS 11:38
PROVIDERS: PCP Family Medicine; Visit Provider Physician Assistant
DX: D64.9 Anemia, unspecified (principal)
CPT/HCPCS: 36415; 85025

== ENCOUNTER 2022-03-29 12:35 | Outpatient (REF) | payer MEDICARE, OTHER, SELFPAY ==
[2022-03-29 14:27] LABS: Hematocrit 39.6 % (37.0-47.0); Hemoglobin 11.4 g/dl (12.0-16.0); Mean Corpuscular HGB Conc 28.8 g/dl (31.0-35.0); Mean Corpuscular Hemoglobin 19.8 pg (27.0-33.0); Mean Corpuscular Volume 68.9 fL (80.0-98.0); Platelet Count 356 X10*3/uL (160-400); Red Blood Count 5.75 X10*6/uL (4.20-5.50); Red Cell Distribution Width 25.1 % (11.0-16.0)
[2022-03-29 14:46] LABS: Ferritin 9 ng/mL (10-250); Iron 25 mcg/dL (30-160); Percent Iron Saturation 6 % (15-50); Total Iron Binding Capacity 397 mcg/dL (228-428); Unsaturated Iron Binding 372 ug/dL
[2022-03-29 15:09] LABS: Vitamin B12 598 pg/mL (200-900)
== END 2022-03-29 12:36 | disposition home or self-care (01) ==
LOC: HO.HMGCLDS 12:35
PROVIDERS: PCP Family Medicine; Visit Provider Family Medicine
DX: K92.89 Other specified diseases of the digestive system (principal); K21.00 Gastro-esophageal reflux disease with esophagitis, without bleeding
CPT/HCPCS: 36415; 82607; 82728; 83540; 85027

== ENCOUNTER 2022-04-22 13:06 | Outpatient (REF) | payer MEDICARE, OTHER, SELFPAY ==
[2022-04-22 14:03] LABS: Hematocrit 44.3 % (37.0-47.0); Hemoglobin 12.8 g/dl (12.0-16.0); Mean Corpuscular HGB Conc 28.9 g/dl (31.0-35.0); Mean Corpuscular Hemoglobin 21.1 pg (27.0-33.0); Red Blood Count 6.07 X10*6/uL (4.20-5.50); Red Cell Distribution Width 23.1 % (11.0-16.0); White Blood Count 7.4 X10*3/uL (4.8-10.8)
[2022-04-22 14:04] LABS: Platelet Count 311 X10*3/uL (160-400)
[2022-04-22 14:38] LABS: Anion Gap 16 (12-20); Blood Urea Nitrogen 13 mg/dL (9-16); Calcium 9.8 mg/dL (8.4-10.2); Carbon Dioxide 26 mmol/L (22-29); Chloride 102 mmol/L (96-108); Estimated Glomerular Filt Rate > 60; Glucose Random 98 mg/dL (60-115); Iron 37 mcg/dL (30-160); Percent Iron Saturation 10 % (15-50); Potassium 4.4 mmol/L (3.3-5.1); Sodium 140 mmol/L (135-145); Total Iron Binding Capacity 354 mcg/dL (228-428); Unsaturated Iron Binding 317 ug/dL
== END 2022-04-22 13:07 | disposition home or self-care (01) ==
LOC: HO.HMGCLDS 13:06
PROVIDERS: PCP Family Medicine; Visit Provider Family Medicine
DX: K92.89 Other specified diseases of the digestive system (principal); I10 Essential (primary) hypertension
CPT/HCPCS: 36415; 80048; 83540; 85027

== ENCOUNTER 2022-06-01 12:30 | Outpatient (REF) | payer MEDICARE, OTHER, SELFPAY ==
[2022-06-01 14:17] LABS: Hematocrit 48.8 % (37.0-47.0); Hemoglobin 14.9 g/dl (12.0-16.0); Mean Corpuscular HGB Conc 30.5 g/dl (31.0-35.0); Mean Corpuscular Hemoglobin 23.2 pg (27.0-33.0); Mean Corpuscular Volume 76.1 fL (80.0-98.0); Mean Platelet Volume 9.7 fL (9.4-12.3); Platelet Count 326 X10*3/uL (160-400); Red Blood Count 6.41 X10*6/uL (4.20-5.50); Red Cell Distribution Width 24.8 % (11.0-16.0)
[2022-06-01 14:34] LABS: Iron 61 mcg/dL (30-160); Percent Iron Saturation 18 % (15-50); Total Iron Binding Capacity 336 mcg/dL (228-428); Unsaturated Iron Binding 275 ug/dL
[2022-06-01 14:51] LABS: Ferritin 41 ng/mL (10-250)
== END 2022-06-01 12:31 | disposition home or self-care (01) ==
LOC: HO.HMGCLDS 12:30
PROVIDERS: Visit Provider Family Medicine
DX: D64.9 Anemia, unspecified (principal)
CPT/HCPCS: 36415; 82728; 83540; 85027

== ENCOUNTER 2022-07-05 12:20 | Outpatient (REF) | payer MEDICARE, OTHER, SELFPAY ==
[2022-07-05 13:50] LABS: MANUAL DIFF FLAG NO
[2022-07-05 13:58] LABS: Basophils Percent Auto 0.5 % (0-2); Eosinophils Absolute Auto 0.1 X10*3/uL (0.0-0.4); Eosinophils Percent Auto 1.4 % (0-4); Hematocrit 48.3 % (37.0-47.0); Hemoglobin 15.1 g/dl (12.0-16.0); Imm Gran Abs Auto 0.03 X10*3/uL (0.00-0.03); Imm Gran Pct Auto 0.4 % (0.0-0.4); Lymphocytes Absolute Auto 1.9 X10*3/uL (1.2-4.9); Lymphocytes Percent Auto 24.4 % (20-40); Mean Corpuscular HGB Conc 31.3 g/dl (31.0-35.0); Mean Corpuscular Hemoglobin 24.8 pg (27.0-33.0); Mean Corpuscular Volume 79.3 fL (80.0-98.0); Mean Platelet Volume 10.2 fL (9.4-12.3); Monocytes Absolute Auto 0.5 X10*3/uL (0.1-1.2); Neutrophils Absolute Auto 5.1 x10*3/uL (2.0-8.3); Neutrophils Percent Auto 66.3 % (45-73); Platelet Count 314 X10*3/uL (160-400); Red Blood Count 6.09 X10*6/uL (4.20-5.50); Red Cell Distribution Width 23.6 % (11.0-16.0); White Blood Count 7.7 X10*3/uL (4.8-10.8)
[2022-07-06 13:49] LABS: Anion Gap 16 (12-20); Blood Urea Nitrogen 10 mg/dL (9-16); Calcium 9.2 mg/dL (8.4-10.2); Carbon Dioxide 25 mmol/L (22-29); Chloride 105 mmol/L (96-108); Estimated Glomerular Filt Rate > 60; Glucose Random 84 mg/dL (60-115); Iron 80 mcg/dL (30-160); Percent Iron Saturation 26 % (15-50); Potassium 4.5 mmol/L (3.3-5.1); Sodium 141 mmol/L (135-145); Total Iron Binding Capacity 305 mcg/dL (228-428); Unsaturated Iron Binding 225 ug/dL
[2022-07-06 14:02] LABS: Ferritin 46 ng/mL (10-250)
== END 2022-07-05 12:21 | disposition home or self-care (01) ==
LOC: HO.HMGCLDS 12:20
PROVIDERS: PCP Family Medicine; Visit Provider Family Medicine
DX: D64.9 Anemia, unspecified (principal)
CPT/HCPCS: 36415; 80048; 82728; 83540; 85025

== ENCOUNTER 2022-08-26 11:46 | Outpatient (REF) | payer MEDICARE, OTHER, SELFPAY ==
[2022-08-26 14:04] LABS: Hematocrit 46.3 % (37.0-47.0); Mean Corpuscular HGB Conc 32.4 g/dl (31.0-35.0); Mean Corpuscular Volume 86.4 fL (80.0-98.0); Mean Platelet Volume 10.4 fL (9.4-12.3); Platelet Count 298 X10*3/uL (160-400); Red Blood Count 5.36 X10*6/uL (4.20-5.50); Red Cell Distribution Width 15.9 % (11.0-16.0); White Blood Count 7.3 X10*3/uL (4.8-10.8)
[2022-08-26 14:23] LABS: Iron 88 mcg/dL (30-160); Percent Iron Saturation 32 % (15-50); Total Iron Binding Capacity 276 mcg/dL (228-428); Unsaturated Iron Binding 188 ug/dL
[2022-08-26 14:42] LABS: Ferritin 55 ng/mL (10-250)
== END 2022-08-26 11:47 | disposition home or self-care (01) ==
LOC: HO.HMGCLDS 11:46
PROVIDERS: PCP Family Medicine; Visit Provider Family Medicine
DX: D64.9 Anemia, unspecified (principal)
CPT/HCPCS: 36415; 82728; 83540; 85027

== ENCOUNTER 2023-01-27 13:14 | Outpatient (REF) | payer MEDICARE, OTHER, SELFPAY ==
[2023-01-27 16:12] LABS: Hematocrit 48.1 % (37.0-47.0); Hemoglobin 15.7 g/dl (12.0-16.0); Mean Corpuscular HGB Conc 32.6 g/dl (31.0-35.0); Mean Corpuscular Hemoglobin 29.9 pg (27.0-33.0); Mean Corpuscular Volume 91.6 fL (80.0-98.0); Mean Platelet Volume 9.9 fL (9.4-12.3); Platelet Count 274 X10*3/uL (160-400); Red Blood Count 5.25 X10*6/uL (4.20-5.50); Red Cell Distribution Width 14.6 % (11.0-16.0); White Blood Count 8.2 X10*3/uL (4.8-10.8)
[2023-01-27 16:35] LABS: Iron 219 mcg/dL (30-160); Percent Iron Saturation 72 % (15-50); Total Iron Binding Capacity 304 mcg/dL (228-428); Unsaturated Iron Binding 85 ug/dL
[2023-01-27 16:43] LABS: Ferritin 48 ng/mL (10-250)
== END 2023-01-27 13:15 | disposition home or self-care (01) ==
LOC: HO.HMGCLDS 13:14
PROVIDERS: PCP Family Medicine; Visit Provider Family Medicine
DX: D64.9 Anemia, unspecified (principal)
CPT/HCPCS: 36415; 82728; 83540; 85027

== ENCOUNTER 2023-03-07 14:34 | Outpatient (REF) | payer MEDICARE, OTHER, SELFPAY ==
[2023-03-07 16:05] LABS: Hematocrit 48.6 % (37.0-47.0); Hemoglobin 16.2 g/dl (12.0-16.0); Mean Corpuscular HGB Conc 33.3 g/dl (31.0-35.0); Mean Corpuscular Hemoglobin 30.4 pg (27.0-33.0); Mean Corpuscular Volume 91.2 fL (80.0-98.0); Mean Platelet Volume 10.8 fL (9.4-12.3); Platelet Count 216 X10*3/uL (160-400); Red Blood Count 5.33 X10*6/uL (4.20-5.50); Red Cell Distribution Width 14.2 % (11.0-16.0); White Blood Count 8.2 X10*3/uL (4.8-10.8)
[2023-03-07 16:25] LABS: Iron 91 mcg/dL (30-160); Percent Iron Saturation 30 % (15-50); Total Iron Binding Capacity 302 mcg/dL (228-428); Unsaturated Iron Binding 211 ug/dL
[2023-03-07 16:35] LABS: Ferritin 42 ng/mL (10-250)
== END 2023-03-07 14:35 | disposition home or self-care (01) ==
LOC: HO.HMGCLDS 14:34
PROVIDERS: Visit Provider Family Medicine
DX: D64.9 Anemia, unspecified (principal)
CPT/HCPCS: 36415; 82728; 83540; 85027

== ENCOUNTER 2023-04-26 14:27 | Outpatient (REF) | payer MEDICARE, OTHER, SELFPAY ==
[2023-04-26 16:35] LABS: Anion Gap 14 (12-20); Blood Urea Nitrogen 15 mg/dL (9-16); Calcium 9.5 mg/dL (8.4-10.2); Carbon Dioxide 24 mmol/L (22-29); Chloride 105 mmol/L (96-108); Cholesterol 206 mg/dL (<200); Estimated Glomerular Filt Rate > 60; Glucose Random 104 mg/dL (60-115); HDL Cholesterol 62 mg/dL (>40); LDL Cholesterol Calculated 118 mg/dL (<100); Potassium 3.4 mmol/L (3.3-5.1); Sodium 140 mmol/L (135-145); Triglycerides 131 mg/dL (<150)
== END 2023-04-26 14:28 | disposition home or self-care (01) ==
LOC: HO.HMGCLDS 14:27
PROVIDERS: PCP Family Medicine; Visit Provider Family Medicine
DX: I10 Essential (primary) hypertension (principal)
CPT/HCPCS: 36415; 80048; 80061

== ENCOUNTER 2023-06-22 14:06 | Outpatient (REF) | payer MEDICARE, OTHER, SELFPAY ==
[2023-06-22 16:12] LABS: Hematocrit 45.2 % (37.0-47.0); Hemoglobin 14.5 g/dl (12.0-16.0); Mean Corpuscular HGB Conc 32.1 g/dl (31.0-35.0); Mean Corpuscular Hemoglobin 28.4 pg (27.0-33.0); Mean Corpuscular Volume 88.6 fL (80.0-98.0); Mean Platelet Volume 9.7 fL (9.4-12.3); Platelet Count 321 X10*3/uL (160-400); Red Cell Distribution Width 13.8 % (11.0-16.0); White Blood Count 8.9 X10*3/uL (4.8-10.8)
[2023-06-22 16:35] LABS: Iron 51 mcg/dL (30-160); Percent Iron Saturation 14 % (15-50); Total Iron Binding Capacity 363 mcg/dL (228-428); Unsaturated Iron Binding 312 ug/dL
[2023-06-22 16:52] LABS: Ferritin 17 ng/mL (10-250)
== END 2023-06-22 14:07 | disposition home or self-care (01) ==
LOC: HO.HMGCLR 14:06
PROVIDERS: PCP Family Medicine; Visit Provider Family Medicine
DX: D64.9 Anemia, unspecified (principal)
CPT/HCPCS: 36415; 82728; 83540; 85027

== ENCOUNTER 2023-07-31 14:37 | Outpatient (REF) | payer MEDICARE, OTHER, SELFPAY ==
[2023-07-31 15:54] LABS: Hematocrit 42.3 % (37.0-47.0); Hemoglobin 13.6 g/dl (12.0-16.0); Mean Corpuscular HGB Conc 32.2 g/dl (31.0-35.0); Mean Corpuscular Hemoglobin 26.5 pg (27.0-33.0); Mean Corpuscular Volume 82.3 fL (80.0-98.0); Mean Platelet Volume 10.1 fL (9.4-12.3); Platelet Count 313 X10*3/uL (160-400); Red Blood Count 5.14 X10*6/uL (4.20-5.50); Red Cell Distribution Width 14.6 % (11.0-16.0)
[2023-07-31 17:54] LABS: Iron 29 mcg/dL (30-160); Percent Iron Saturation 8 % (15-50); Total Iron Binding Capacity 353 mcg/dL (228-428); Unsaturated Iron Binding 324 ug/dL
[2023-07-31 18:04] LABS: Ferritin 12 ng/mL (10-250)
== END 2023-07-31 14:38 | disposition home or self-care (01) ==
LOC: HO.HMGCLR 14:37
PROVIDERS: PCP Family Medicine; Visit Provider Family Medicine
DX: D64.9 Anemia, unspecified (principal)
CPT/HCPCS: 36415; 82728; 83540; 85027

== ENCOUNTER 2024-02-21 13:09 | Outpatient (REF) | payer MEDICARE, OTHER, SELFPAY ==
[2024-02-21 16:48] LABS: Hematocrit 45.5 % (37.0-47.0); Hemoglobin 14.4 g/dl (12.0-16.0); Mean Corpuscular HGB Conc 31.6 g/dl (31.0-35.0); Mean Corpuscular Hemoglobin 25.3 pg (27.0-33.0); Mean Corpuscular Volume 79.8 fL (80.0-98.0); Mean Platelet Volume 9.5 fL (9.4-12.3); Platelet Count 320 X10*3/uL (160-400); Red Cell Distribution Width 22.4 % (11.0-16.0); White Blood Count 8.9 X10*3/uL (4.8-10.8)
[2024-02-21 17:05] LABS: Iron 89 mcg/dL (30-160); Percent Iron Saturation 26 % (15-50); Total Iron Binding Capacity 339 mcg/dL (228-428); Unsaturated Iron Binding 250 ug/dL
[2024-02-21 17:23] LABS: Ferritin 54 ng/mL (10-250)
== END 2024-02-21 13:10 | disposition home or self-care (01) ==
LOC: HO.HMGCLR 13:09
PROVIDERS: PCP Family Medicine; Visit Provider Family Medicine
DX: D64.9 Anemia, unspecified (principal)
CPT/HCPCS: 36415; 82728; 83540; 85027

== ENCOUNTER 2024-08-22 11:30 | Outpatient (AMB) | payer MEDICARE, OTHER, SELFPAY ==
--- NOTE | 2024-08-22 11:31 | MHC.OFFVIS ---
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 Says her daughter was a patient in this office which is what made her reach out. Patient reports low back pain that radiates down into the left buttock. She went to a chiropractor for a month and says she was not a fan of it however she says she was told by the chiropractor that her problem can not be fixed with physical therapy. She expresses persistent daily pain. Normally if she is sitting she does not have pain. She says lying in bed and getting rest is difficult for her, she can not lay flat. She says she is embarrassed because she is not even able to bend down and shave her legs. She states ambulation of stairs is terrible for her. She has tried PT and states she hated it and it did nothing. Lumbar spine x-ray from 03/20/24 report from [facility] is in patient's chart. IMPRESSION: 1. Scoliosis 2. Degenerative disc and joint disease L2-3 through L5-S1 Allergies No Known Allergies Allergy (Verified 08/22/24 11:40) Medication List - Last Reconciled 08/22/24 by Julissa Bennett MD atorvastatin 10 mg PO DAILY bupropion HCl SR 200 mg PO DAILY doxycycline monohydrate 100 mg PO DAILY gabapentin 1,200 mg PO DAILY lorazepam 1 mg PO TID PRN omeprazole 40 mg PO DAILY polyethylene glycol 3350 (Miralax) 17 grams PO DAILY PRN propranolol ER 60 mg PO DAILY quetiapine (Seroquel) 25 mg PO BID PRN sumatriptan succinate (Imitrex) 100 mg PO DAILY PRN triamterene-hydrochlorothiazid 37.5-25 mg 37.5 mg; HPI Comments Details: Lower back pain, radiates down to left knee. This is chronic over 20 years. Difficult to stand for prolonged periods. Ambulation has been harder recently, wtih possibly claudication symptoms. Gets better with sitting. No numbness on his feet. Generally weak and left side. Uses an Hungarian walking seat. Had seen [facility] once but didn't pursue because was ill. History of GI bleed, hiatal hernia. Has stopped alcohol for past 2 years to avoid further issues. PCP at [facility] and [place]. [facility] Medical History (Updated 08/22/24 @ 11:54 by Julissa Bennett MD) Symptomatic anemia Migraine Severe anemia Bipolar 1 disorder Surgical History Hx of eye surgery Hx of tonsillectomy Hx of endoscopy Hx of colonoscopy Hx of hysterectomy Family History Father No problems noted. Mother No problems noted. Sister Hx of melanoma excision Social History Household Members: Spouse Housing: House Alcohol intake: current Alcohol intake frequency: other Comment: eating nigerien ice @ this time. 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 Review of Systems Const All systems reviewed & are unremarkable except as noted in HPI and below ENT Reports Normal hearing present Neuro Reports Normal hearing present and Denies Abnormal speech present Physical Exam Constitutional: Patient appears to be in no acute distress, well nourished and well developed. Patient was appropriately conversant and oriented. Good historian. MSK: No specific tenderness over SI joint or GT. Neurological: Left hip flexion 4/5. Rest of MMT 5/5. Reflexes appear intact and symmetric. Cantor?s negative bilaterally. Babinski was down going bilaterally. Clonus was negative. Gait is non-antalgic without loss of balance. Neuro Cranial nerves: Yes Normal hearing present Speech: No Abnormal speech present Results Reviewed Results Reviewed: X-rays above Assessment & Plan Assessment & Plan (1) Chronic back pain: Code(s): M54.9 - Dorsalgia, unspecified; G89.29 - Other chronic pain Category: Medical Qualifiers: Back pain laterality: left Back pain location: low back pain Sciatica laterality: sciatica of left side Sciatica presence: with sciatica Qualified Code(s): M54.42 - Lumbago with sciatica, left side; G89.29 - Other chronic pain (2) Lumbar stenosis with neurogenic claudication: Code(s): M48.062 - Spinal stenosis, lumbar region with neurogenic claudication Category: Medical (3) Left hip pain: Code(s): M25.552 - Pain in left hip Category: Medical Plan Chronic lower back pain, weakness in left hip flexion. Patient had undergone adequate conservative management including [PT] without improvement of condition. It would be reasonable to obtain further imaging such as MRI. An MRI would help rule out any serious condition, guide treatment and assess prognosis for recovery. Specifically ruling out left-sided disc herniation. We will also do left hip x-ray to rule out hip arthritis. Assessment and plan discussed with patient, and patient was agreeable. All questions were answered thoroughly. Follow up after results. Julissa Bennett MD, PRISCILLA Board Certified, [place] Board [employer] and Rehabilitation (ABPMR) Board Certified, [place] Board [employer] Electrodiagnostic [employer] (ABEM) Orders: Orders MR lumbar spine wo con Today G89.29 - Other chronic pain, M25.552 - Pain in left hip, M48.062 - Spinal stenosis, lumbar region with neurogenic claudication, M54.9 - Dorsalgia, unspecified XR hip LT min 2V Today M16.12 - Unilateral primary osteoarthritis, left hip Coding Level of Care Code New Pt Level 4 (38083) Diagnoses Chronic left-sided low back pain with left-sided sciatica M54.42; G89.29 Back pain laterality: left Back pain location: low back pain Sciatica laterality: sciatica of left side Sciatica presence: with sciatica Lumbar stenosis with neurogenic claudication M48.062 Left hip pain M25.552
== END 2024-08-22 12:07 | disposition home or self-care (01) ==
LOC: HO.HOS 11:31
PROVIDERS: PCP Family Medicine; Visit Provider Physical Medicine & Rehabilitation
DX: M54.42 Lumbago with sciatica, left side (principal); G89.29 Other chronic pain; M48.062 Spinal stenosis, lumbar region with neurogenic claudication; M25.552 Pain in left hip
CPT/HCPCS: 99204

== ENCOUNTER 2024-08-22 11:30 | Outpatient (REF) | payer MEDICARE, OTHER, SELFPAY ==
--- NOTE | ~2024-08-22 | XR_ITS ---
EXAMINATION: XR HIP 2 OR MORE VIEWS LEFT HISTORY: M16.12 - Unilateral primary osteoarthritis, left hip COMPARISON: There are no prior studies for comparison. FINDINGS: Two views of the left hip are submitted. Osseous mineralization is normal. There is no fracture or dislocation. There is mild osteoarthritis with joint space narrowing and osteophyte formation. The soft tissues are unremarkable. XR/XR hip LT min 2V IMPRESSION: Mild osteoarthritis. Electronically signed by: Gurwinder Mancilla MD 08/22/2024 12:59 PM EDT
== END 2024-08-22 11:31 | disposition home or self-care (01) ==
LOC: HO.HOSX 11:30
PROVIDERS: PCP Family Medicine; Visit Provider Physical Medicine & Rehabilitation
DX: M16.12 Unilateral primary osteoarthritis, left hip (principal); M25.552 Pain in left hip; M54.42 Lumbago with sciatica, left side; G89.29 Other chronic pain; M48.062 Spinal stenosis, lumbar region with neurogenic claudication
CPT/HCPCS: 73502; 99202

== ENCOUNTER → 2024-08-22 11:58 | Outpatient (BNV) | payer MEDICARE, OTHER, SELFPAY | PROVIDERS: PCP Family Medicine; Visit Provider Radiology Diagnostic Radiology | DX: M16.12 Unilateral primary osteoarthritis, left hip (principal) | CPT/HCPCS: 73502 ==

== ENCOUNTER 2024-09-17 16:30 | Outpatient (REF) | payer MEDICARE, OTHER, SELFPAY ==
--- NOTE | ~2024-09-17 | MR_ITS ---
EXAM: MRI lumbar spine without contrast TECHNIQUE: Multiplanar multisequence imaging was performed through the lumbar spine without contrast. INDICATION: Low back pain PRIOR: None FINDINGS: 5 non-rib bearing lumbar segments are assumed for numbering purposes. If level specific intervention is planned, correlate with an x-ray to ensure concordant numbering. Marrow and end-plates: Modic 2 signal changes evident at L1-2, L2-3 and L5-S1. Alignment: There is 21 degrees levoscoliosis of the lumbar spine. There is mild grade 1 retrolisthesis at L1-2, L2-3, and L3-4. Soft tissues: 12 mm circumscribed lesion in the anterior left kidney is low intensity on T2 imaging and hyperintense on fluid sensitive sequences consistent with a benign simple renal cyst. There is moderate fatty atrophy of the paraspinal musculature. Conus: The termination of conus medullaris is within normal limits at the level of L1-L2. T12-L1: There is disc desiccation, loss disc height and broad-based disc bulge without spinal stenosis or foraminal narrowing. L1-L2: There is disc desiccation, loss of disc height without spinal stenosis or foraminal narrowing. There is mild facet degeneration. L2-L3: There is moderate loss of disc height and disc desiccation with circumferential broad-based disc bulge with small right subarticular zone extrusion. There is also a small left subarticular zone extrusion. There is mild to moderate right and mild left subarticular zone narrowing. Mild foraminal narrowing is greater on right. There is mild spinal stenosis. L3-L4: There is broad-based disc bulge, loss of disc height. There is prominent posterior epidural fat. This contributes to moderate spinal stenosis. There is mild facet degeneration. There is mild right and [id number] left foraminal narrowing. L4-L5: There is disc desiccation and broad-based bulge. There is moderate facet degeneration. There is borderline mild spinal stenosis. There is no right and mild left foraminal narrowing. L5-S1: There is disc desiccation and broad-based disc bulge. There is moderate facet degeneration and trace fluid in the left facet joint. There is no spinal stenosis. There is minimal right and moderate to severe left foraminal narrowing with possible encroachment of the left L5 nerve root. MR/MR lumbar spine wo con IMPRESSION: Mild levoscoliosis. L2-L3: There is a small right subarticular zone herniation. There is also a small left subarticular zone herniation. There is mild to moderate right and mild left subarticular zone narrowing with possible encroachment of the right L3 nerve root. There is mild spinal stenosis. L3-L4: There moderate spinal stenosis. There is mild right and [id number] left foraminal narrowing. L4-L5: There is borderline mild spinal stenosis. L5-S1: There is moderate to severe left foraminal narrowing with possible encroachment of the left L5 nerve root. Electronically signed by: Glen Ludwig MD 09/17/2024 06:08 PM EDT
== END 2024-09-17 16:31 | disposition home or self-care (01) ==
LOC: HO.MRI 16:30
PROVIDERS: Visit Provider Physical Medicine & Rehabilitation
DX: M54.9 Dorsalgia, unspecified (principal); G89.29 Other chronic pain; M48.062 Spinal stenosis, lumbar region with neurogenic claudication; M25.552 Pain in left hip
CPT/HCPCS: 72148

== ENCOUNTER → 2024-09-17 16:45 | Outpatient (BNV) | payer MEDICARE, OTHER, SELFPAY | PROVIDERS: Visit Provider Radiology Diagnostic Radiology | DX: M48.061 Spinal stenosis, lumbar region without neurogenic claudication (principal); M51.26 Other intervertebral disc displacement, lumbar region | CPT/HCPCS: 72148 ==

== ENCOUNTER 2024-10-17 12:01 | Outpatient (AMB) | payer MEDICARE, OTHER, SELFPAY ==
--- NOTE | 2024-10-17 12:04 | MHC.OFFVIS ---
Vital Signs 10/17/24 12:06 Height 5 ft 6 in Weight 200 lb BMI 32.3 Intake Visit Reasons: OV- Low back pain, MRI review Intake Note: Edie is a 74 year old female who presents today as a follow up for Lower back pain, MRI review 09/17/24. Patient reports that she lost 20lbs since 05/11, and has noticed some relief from the pain. Patient states she would like to discuss at home exercises that she could do. Allergies No Known Allergies Allergy (Verified 10/17/24 12:09) Medication List - Last Reconciled 10/17/24 by Julissa Bennett MD atorvastatin 10 mg PO DAILY bupropion HCl SR 200 mg PO DAILY doxycycline monohydrate 100 mg PO DAILY gabapentin 1,200 mg PO DAILY lorazepam 1 mg PO TID PRN omeprazole 40 mg PO DAILY polyethylene glycol 3350 (Miralax) 17 grams PO DAILY PRN propranolol ER 60 mg PO DAILY quetiapine (Seroquel) 25 mg PO BID PRN sumatriptan succinate (Imitrex) 100 mg PO DAILY PRN triamterene-hydrochlorothiazid 37.5-25 mg 37.5 mg; HPI Comments Details: Lower back pain, radiates down to left knee. This is chronic over 20 years. Difficult to stand for prolonged periods. Ambulation has been harder recently, with possibly claudication symptoms. Gets better with sitting. No numbness on his feet. Generally weak and left side. Uses an Italian walking seat. Had seen [facility] once but didn't pursue because was ill. History of GI bleed, hiatal hernia. Has stopped alcohol for past 2 years to avoid further issues. PCP at [facility] and [place]. MRI done, showed spondylosis, multilevel disc bulge, most notable L3-4 with moderate spinal stenosis. Lost weight 20 lbs since last visit in April, voluntarily, which helped with pain. Noted that she does need a cane for walking prolonged periods. No bladder/bowel changes. No new numbness on feet. [facility] Medical History (Updated 08/22/24 @ 11:54 by Julissa Bennett MD) Symptomatic anemia Migraine Severe anemia Bipolar 1 disorder Surgical History Hx of eye surgery Hx of tonsillectomy Hx of endoscopy Hx of colonoscopy Hx of hysterectomy Family History Father No problems noted. Mother No problems noted. Sister Hx of melanoma excision Social History Household Members: Spouse Housing: House Alcohol intake: current Alcohol intake frequency: other Comment: eating danish ice @ this time. 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 Review of Systems Const All systems reviewed & are unremarkable except as noted in HPI and below ENT Reports Normal hearing present Neuro Reports Normal hearing present and Denies Abnormal speech present Physical Exam Vital Signs: BMI result Body Mass Index 32.3 Constitutional: Patient appears to be in no acute distress, well nourished and well developed. Patient was appropriately conversant and oriented. Good historian. MSK: No specific tenderness over SI joint or GT. Neurological: No footdrop. Babinski was down going bilaterally. Clonus was negative. Neuro Cranial nerves: Yes Normal hearing present Speech: No Abnormal speech present Results Reviewed Results Reviewed: Reviewed MRI results/images with patient. Ordering Physician: Julissa Fink Date of Service: 09/17/24 Procedure(s): MR lumbar spine wo con Accession Number(s): [id number] cc: Physician,Unknown ; Julissa Fink~ EXAM: MRI lumbar spine without contrast TECHNIQUE: Multiplanar multisequence imaging was performed through the lumbar spine without contrast. INDICATION: Low back pain PRIOR: None FINDINGS: 5 non-rib bearing lumbar segments are assumed for numbering purposes. If level specific intervention is planned, correlate with an x-ray to ensure concordant numbering. Marrow and end-plates: Modic 2 signal changes evident at L1-2, L2-3 and L5-S1. Alignment: There is 21 degrees levoscoliosis of the lumbar spine. There is mild grade 1 retrolisthesis at L1-2, L2-3, and L3-4. Soft tissues: 12 mm circumscribed lesion in the anterior left kidney is low intensity on T2 imaging and hyperintense on fluid sensitive sequences consistent with a benign simple renal cyst. There is moderate fatty atrophy of the paraspinal musculature. Conus: The termination of conus medullaris is within normal limits at the level of L1-L2. T12-L1: There is disc desiccation, loss disc height and broad-based disc bulge without spinal stenosis or foraminal narrowing. L1-L2: There is disc desiccation, loss of disc height without spinal stenosis or foraminal narrowing. There is mild facet degeneration. L2-L3: There is moderate loss of disc height and disc desiccation with circumferential broad-based disc bulge with small right subarticular zone extrusion. There is also a small left subarticular zone extrusion. There is mild to moderate right and mild left subarticular zone narrowing. Mild foraminal narrowing is greater on right. There is mild spinal stenosis. L3-L4: There is broad-based disc bulge, loss of disc height. There is prominent posterior epidural fat. This contributes to moderate spinal stenosis. There is mild facet degeneration. There is mild right and pggg-il-kqqxwkkn left foraminal narrowing. L4-L5: There is disc desiccation and broad-based bulge. There is moderate facet degeneration. There is borderline mild spinal stenosis. There is no right and mild left foraminal narrowing. L5-S1: There is disc desiccation and broad-based disc bulge. There is moderate facet degeneration and trace fluid in the left facet joint. There is no spinal stenosis. There is minimal right and moderate to severe left foraminal narrowing with possible encroachment of the left L5 nerve root. MR/MR lumbar spine wo con IMPRESSION: Mild levoscoliosis. L2-L3: There is a small right subarticular zone herniation. There is also a small left subarticular zone herniation. There is mild to moderate right and mild left subarticular zone narrowing with possible encroachment of the right L3 nerve root. There is mild spinal stenosis. L3-L4: There moderate spinal stenosis. There is mild right and cpqv-xo-ydvsvlis left foraminal narrowing. L4-L5: There is borderline mild spinal stenosis. L5-S1: There is moderate to severe left foraminal narrowing with possible encroachment of the left L5 nerve root. Electronically signed by: Glen Ludwig MD 09/17/2024 06:08 PM EDT RP X-rays above Assessment & Plan Assessment & Plan (1) Chronic back pain: Code(s): M54.9 - Dorsalgia, unspecified; G89.29 - Other chronic pain Category: Medical Qualifiers: Back pain location: low back pain Back pain laterality: left Sciatica presence: with sciatica Sciatica laterality: sciatica of left side Qualified Code(s): M54.42 - Lumbago with sciatica, left side; G89.29 - Other chronic pain (2) Lumbar stenosis with neurogenic claudication: Code(s): M48.062 - Spinal stenosis, lumbar region with neurogenic claudication Category: Medical (3) Left hip pain: Code(s): M25.552 - Pain in left hip Category: Medical Plan We looked at MRI images together. She does describe some symptoms of claudication. Advised to use a walker especially if she expects to walk a lot. Referring her to pain management as she is considering lumbar epidural injections, but asking whether she can be sedated. Assessment and plan discussed with patient, and patient was agreeable. All questions were answered thoroughly. Follow up 6 months. Julissa Bennett MD, PRISCILLA Board Certified, [place] [employer] and Rehabilitation (ABPMR) Board Certified, [place] [employer] Electrodiagnostic Medicine (ABEM) Orders: Referrals Pain Management Referral G89.29 - Other chronic pain, M48.062 - Spinal stenosis, lumbar region with neurogenic claudication, M54.42 - Lumbago with sciatica, left side Coding Level of Care Code Est Pt Level 3 (04986) Diagnoses Chronic left-sided low back pain with left-sided sciatica M54.42; G89.29 Back pain location: low back pain Back pain laterality: left Sciatica presence: with sciatica Sciatica laterality: sciatica of left side Lumbar stenosis with neurogenic claudication M48.062 Left hip pain M25.552
[2024-10-17 12:06] VITALS: BMI 32.3
== END 2024-10-17 12:41 | disposition home or self-care (01) ==
LOC: HO.HOS 12:02
PROVIDERS: PCP Family Medicine; Visit Provider Physical Medicine & Rehabilitation
DX: M54.42 Lumbago with sciatica, left side (principal); G89.29 Other chronic pain; M48.062 Spinal stenosis, lumbar region with neurogenic claudication; M25.552 Pain in left hip
CPT/HCPCS: 99213

== ENCOUNTER → 2024-10-17 12:01 | Outpatient (BNVA) | payer MEDICARE, OTHER, SELFPAY | PROVIDERS: PCP Family Medicine; Visit Provider Physical Medicine & Rehabilitation | DX: M54.42 Lumbago with sciatica, left side (principal); M48.062 Spinal stenosis, lumbar region with neurogenic claudication; M25.552 Pain in left hip; G89.29 Other chronic pain | CPT/HCPCS: 99212 ==

== ENCOUNTER 2024-11-22 12:31 | Outpatient (AMB) | payer MEDICARE, OTHER, SELFPAY ==
--- NOTE | 2024-11-22 12:33 | MHC.OFFVIS ---
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 Required: No Allergies No Known Allergies Allergy (Verified 11/22/24 12:36) Medication List - Last Reconciled 11/22/24 by Suni Sharp LPN atorvastatin 10 mg PO DAILY bupropion HCl SR 200 mg PO DAILY doxycycline monohydrate 100 mg PO DAILY gabapentin 1,200 mg PO DAILY lorazepam 1 mg PO TID PRN propranolol ER 60 mg PO DAILY quetiapine (Seroquel) 25 mg PO BID PRN sumatriptan succinate (Imitrex) 100 mg PO DAILY PRN triamterene-hydrochlorothiazid 37.5-25 mg 37.5 mg; HPI HPI Lumbago w/ Sciatica: Details: History of Present Illness The patient is a 74-year-old female presenting with chronic lower back pain and left leg pain. The pain has persisted for over 20 years, described as stabbing and reaching an intensity of 10/10, significantly limiting her ability to perform daily activities. The pain is primarily located in the axial low back and radiates to the left thigh, with varying intensity between the back and leg. The patient is currently on gabapentin 1200 mg daily and lorazepam as needed, but these medications have not provided substantial relief. She has also tried chiropractic therapy without success. An MRI of the lumbar spine showed significant lumbar scoliosis, multilevel degenerative disc disease, and degenerative joint disease, with foraminal narrowing compressing the left L5 and right L3 nerve roots. Pain Description - Onset: Pain has been present for more than 20 years. - Quality: Described as a stabbing sensation. - Intensity: Rated as 10/10. - Location: Axial low back and left thigh. - Radiation: Pain radiates from the lower back to the left leg. - Exacerbating factors: Daily activities are severely impacted. - Relieving factors: Medications such as gabapentin and lorazepam have not provided significant relief. Physical Exam - Musculoskeletal: Positive straight leg raise on the left side indicating lumbar radicular pain. Results - MRI of the lumbar spine: Significant lumbar scoliosis, multilevel degenerative disc disease, degenerative joint disease, foraminal narrowing with compression of the left L5 and right L3 nerve roots. Pain Management - Affect: Pain significantly impacts the patient's daily activities and quality of life. - Analgesia: Currently on gabapentin 1200 mg daily and lorazepam as needed, with limited relief. - Adverse Effects: No specific adverse effects from medications discussed. - Activities of Daily Living: Pain prevents the patient from engaging in daily activities and enjoying life. - Aberrant Drug Related Behaviors: No aberrant behaviors reported. [facility] Medical History (Updated 12/03/24 @ 13:43 by Nickolas Dsouza MD) Symptomatic anemia Migraine Severe anemia Bipolar 1 disorder Surgical History Hx of eye surgery Hx of tonsillectomy Hx of endoscopy Hx of colonoscopy Hx of hysterectomy Family History Father No problems noted. Mother No problems noted. Sister Hx of melanoma excision Social History Household Members: Spouse Housing: House Alcohol intake: current Alcohol intake frequency: other Comment: eating sinhala ice @ this time. 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 Physical Exam Vital Signs: Last Vital Signs Pulse 78 11/22/24 12:34 Resp 16 11/22/24 12:34 BP 130/77 11/22/24 12:34 Pulse Ox 97 11/22/24 12:34 Oxygen Delivery Method Room Air 11/22/24 12:34 BMI result Body Mass Index 32.3 Assessment & Plan Assessment & Plan (1) Lumbar radiculopathy: Code(s): M54.16 - Radiculopathy, lumbar region Category: Medical Plan Plan - Left L5 TFESI for left radicular pain - Obtain insurance authorization for the procedure, which may take up to three weeks. - Pre-procedure medication with Valium and oxycodone to manage discomfort during the injection. Patient was informed and verbally consented to the use of an ambient scribe for clinic note documentation during this visit. Discussion Notes I discussed with the patient the plan to administer an epidural steroid injection to address the left leg pain, which may also help with the back pain. We talked about the need for insurance authorization, which could take up to three weeks. I explained the option of taking Valium and oxycodone before the procedure to manage discomfort. The patient was informed that the procedure would take place at the hospital across the street, and we would appeal if insurance does not approve it initially. Patient Instructions - Await a call for scheduling the epidural steroid injection once insurance authorization is obtained. - Take Valium and oxycodone as instructed before the procedure to help with discomfort. - Contact the office if there are any questions or concerns regarding the procedure or medications. Medications: New oxycodone Partial Fill upon patient request. 5 mg PO DAILY PRN 1 tab 0RF pain diazepam (Valium) 5 mg PO DAILY PRN 1 tab 0RF sleep Coding Level of Care Code New Pt Level 4 (52086) Diagnoses Lumbar radiculopathy M54.16
[2024-11-22 12:34] VITALS: BP 130/77; PULSE 78; RESP 16; O2SAT 97; BMI 32.3
== END 2024-11-22 12:51 | disposition home or self-care (01) ==
LOC: HO.PMC 12:32
PROVIDERS: PCP Family Medicine; Referring Provider Physical Medicine & Rehabilitation; Visit Provider Internal Medicine
DX: M54.16 Radiculopathy, lumbar region (principal)
CPT/HCPCS: 99204

== ENCOUNTER → 2024-11-22 12:31 | Outpatient (BNVA) | payer MEDICARE, OTHER, SELFPAY | PROVIDERS: PCP Family Medicine; Referring Provider Physical Medicine & Rehabilitation; Visit Provider Internal Medicine | DX: M54.16 Radiculopathy, lumbar region (principal) | CPT/HCPCS: 99202 ==

== ENCOUNTER 2025-01-23 06:20 | Outpatient (REF) | payer MEDICARE, OTHER, SELFPAY ==
--- NOTE | ~2025-01-23 | FL_ITS ---
EXAMINATION: FL GUIDANCE ONLY HISTORY: M54.16 - Radiculopathy, lumbar region COMPARISON: None available. TECHNIQUE: Fluoroscopy time: 0.2 minutes. Cumulative Dose: 5.71 mGy. DAP: 0.0274 mGycm2 Images: 2. FINDINGS: Fluoroscopic spot films of the lumbar spine demonstrate a needle and contrast material in the region of a left-sided facet joint. FL/FL guidance in treatment room IMPRESSION: Fluoroscopy during procedure. Please see procedure report for additional information. Electronically signed by: Gurwinder Mancilla MD 01/23/2025 02:57 PM EDT
== END 2025-01-23 06:21 | disposition home or self-care (01) ==
LOC: CF 06:20
PROVIDERS: Visit Provider Internal Medicine
DX: M54.16 Radiculopathy, lumbar region (principal)
CPT/HCPCS: 64483; J1100; J2003; J2795; Q9967

== ENCOUNTER 2025-01-23 12:03 | Outpatient (AMB) | payer MEDICARE, OTHER, SELFPAY ==
[2025-01-23 12:17] VITALS: BP 120/71; PULSE 72; O2SAT 96; BMI 32.3
--- NOTE | 2025-01-23 12:17 | A.OFFVIS_ITS ---
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 Required: No Advisory Software Engineer: Advisory Software Engineer Present Accompanied by: Employee Allergies No Known Allergies Allergy (Verified 01/23/25 12:17) Medication List - Last Reconciled 01/23/25 by Aisha Dubose, MICROCHIP SPECIALIST atorvastatin 10 mg PO DAILY bupropion HCl SR 200 mg PO DAILY diazepam (Valium) 5 mg PO DAILY PRN doxycycline monohydrate 100 mg PO DAILY gabapentin 1,200 mg PO DAILY lorazepam 1 mg PO TID PRN oxycodone 5 mg PO DAILY PRN propranolol ER 60 mg PO DAILY quetiapine (Seroquel) 25 mg PO BID PRN sumatriptan succinate (Imitrex) 100 mg PO DAILY PRN triamterene-hydrochlorothiazid 37.5-25 mg 37.5 mg; HPI HPI Left L5 TFESI: Details: Patient presents for scheduled procedure. Denies any recent cough, cold, infection, fever or other significant changes in medical history since last office visit. [facility] Medical History (Updated 12/03/24 @ 13:43 by Nickolas Dsouza MD) Symptomatic anemia Migraine Severe anemia Bipolar 1 disorder Surgical History Hx of eye surgery Hx of tonsillectomy Hx of endoscopy Hx of colonoscopy Hx of hysterectomy Family History Father No problems noted. Mother No problems noted. Sister Hx of melanoma excision Social History Household Members: Spouse Housing: House Alcohol intake: current Alcohol intake frequency: other Comment: eating syrian ice @ this time. 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 Physical Exam Vital Signs: Last Vital Signs Pulse 72 01/23/25 12:17 BP 120/71 01/23/25 12:17 Pulse Ox 96 01/23/25 12:17 Oxygen Delivery Method Room Air 01/23/25 12:17 BMI result Body Mass Index 32.3 Office Procedures Details: Transforaminal epidural steroid injection, Left L5 After obtaining written consent, pre-procedure blood pressure and heart rate were stable and recorded in the nursing record. The patient was placed in the prone position on the fluoroscopy table. The lumbosacral area was prepped with chloraprep, allowed to dry and draped in sterile fashion. Using fluoroscopy, the skin overlying our target was anesthetized with 0.5% lidocaine. A 22 gauge 3.5 inch spinal needle was advanced to the safe triangle in the upper pole of the left L5 foramen. No paresthesias were elicited with needle placement and aspiration was negative for blood and CSF. Correct needle position was confirmed with approximately 1 ml contrast dye (Omnipaque 180 mg/ml) injected under real-time fluoroscopy. No evidence of vascular or intrathecal uptake was seen and there was both epidural and peripheral spread of the contrast agent. 10 mg dexamethasone plus 1 ml containing 0.5% lidocaine was slowly injected. The needle was flushed and removed. the same procedure was repeated for the remaining levels. The skin was cleansed and a sterile bandages were applied. The patient tolerated the procedure well and no complications were encountered. Following the procedure the patient's vital signs were stable. The patient was discharged home in good condition with post-procedural instructions. Time Out: Immediately prior to the procedure, the following was verbally confirmed that there is a signed consent form and that the correct patient, zunilda nned procedure, site and side are consistent with documentation and that necessary equipment and/or blood products are available prior to the start of the case. Complications: none EBL: <5 cc 33116 - Lumbar/Sacral Procedure code (CPT) selection complete Assessment & Plan Assessment & Plan (1) Lumbar radiculopathy: Code(s): M54.16 - Radiculopathy, lumbar region Category: Medical Plan Patient is status post left L5 transforaminal epidural steroid injection. Patient tolerated procedure well and was discharged home in stable condition with discharge instructions. All questions were answered. We will follow-up via telephone or in clinic to assess response to therapy. A follow-up appointment was made during today's visit. Orders: Orders FL guidance in treatment room 01/23/25 M54.16 - Radiculopathy, lumbar region Coding Level of Care Code Procedure Only Diagnoses Lumbar radiculopathy M54.16 CPT Codes Transforaminal Epidural Steroid Inj - TESI 3: 29537 - Lumbar/Sacral ([id number])
== END 2025-01-23 13:20 | disposition home or self-care (01) ==
LOC: HO.PMCPRC 12:03
PROVIDERS: PCP Family Medicine; Visit Provider Internal Medicine
DX: M54.16 Radiculopathy, lumbar region (principal)
CPT/HCPCS: 64483

== ENCOUNTER 2025-03-14 11:08 | Outpatient (REF) | payer MEDICARE, OTHER, SELFPAY ==
--- OUTSIDE RECORDS SUMMARY | 2025-03-14 11:11 | XMS_ITS | Encounter Summary ---
Author Organization [facility] Address [address] [facility] [address] [place] [address] Phone Care Team Providers Care Contact Lens Molder Name Role Phone Vi Daíz Primary Care Provider [phone]- [phone] Encounter Details Date Type Department Care Team (Latest Contact Info) Description 01/21/2025 Transcribe Orders Virtual Department [address] [place], [place] [id number] Vi Díaz PA [address] [place] [address] Asymptomatic menopausal state (Primary Dx) Social History Tobacco Use Types Packs/Day Years Used Date Smoking Tobacco: Never Education Answer Date Recorded Are you interested in more education? Not on arturo e 08/14/2022 Are you concerned about learning? Not on file 08/14/2022 No 08/14/2022 No 08/14/2022 Digital Access Answer Date Recorded No 09/11/2022 No 09/11/2022 No 09/11/2022 Reliable internet access at home? Not on file 09/11/2022 Device with a working camera? Not on file Comments Unknown Sex and Gender Information Value Date Recorded Sex Assigned at Not on file Legal Sex Female 5:01 PM EST Gender Identity Not on file Sexual Orientation Not on file documented as of this encounter Plan of Treatment Upcoming Encounters Date Type Department Care Team (Late st Contact Info) Description 06/18/2025 1:45 PM EST Appointment [facility] [place] [facility] [address] [place] [address] Vi Díaz PA [address] [place] [address] Scheduled Orders Name Type Priority Associated Diagnoses Orde r Schedule DXA Screening Imaging Routine Asymptomatic menopausal state Expected: 02/20/2025, Expires: 01/21/2026 documented as of this encounter Visit Diagnoses Diagnosis Asymptomatic menopausal state- Primary documented in this encounter Care Teams Contact Lens Molder Relationship Specialty Start Date End Date Vi Díaz PA [address] [place] [address] PCP - General Physician Talent Consultant 01/21/25 documented as of this encounter Additional Source Comments The information contained in this document represents components of the legal health record. It is not the complete legal health record.[facility]
--- OUTSIDE RECORDS SUMMARY | 2025-03-14 11:11 | XMS_ITS | Clinical Summary ---
Author Organization [facility] Address [address] [employer] [facility] [address] [place] [address] Phone Care Team Providers Care Drug And Alcohol Treatment Specialist Name Role Phone Vi Díaz Primary Care Provider [phone]- [phone] Encounters Date Type Department Care Team Description 01/21/2025 Transcribe Orders Virtual Department [address] [place] [address] Vi Díaz PA Asymptomatic menopausal state (Primary Dx) from Last 3 Months Social History Tobacco Use Types Packs/Day Years [...] on file Sexual Orientation Not on file Plan of Treatment Upcoming Encounters Date Type Department Care Team (Late st Contact Info) Description 06/18/2025 1:45 PM EST Appointment [facility] [address] [place] [address] Vi Díaz PA [address] [place] [phone] Health Maintenance Due Date Last Done Comments LIPID PANEL 1951 DEPRESSION SCREENING 1963 SMOKING Hx and SMOKELESS TOBACCO SCREENING 1964 HEPATITIS C SCREENING 1969 MAMMOGRAM 1991 COLOGUARD 1996 COLONOSCOPY 1996 COLORECTAL CANCER SCREENING 1996 FIT TEST 1996 FOBT 1996 SIGMOIDOSCOPY 1996 VIRTUAL COLONOSCOPY 1996 PNEUMOCOCCAL VACCINES (50+ years) (1 of 1 - PCV) 2001 ZOSTER VACCINES (1 of 2) 2001 OSTEOPOROSIS SCREENING INITI AL (ONE-TIME) 2016 Adult Td,Tdap Booster 09/21/2022 09/21/2012 INFLUENZA VACCINE (#1) 2024 , 06/24/2019, 01/16/2012 COVID-19 VACCINE (3 - 2024-2 6 season) 2024 06/22/2020, 06/01/2020 RSV VACCINE (1 - 1-dose 75+ series) 2026 HEPATITIS A VACCINES Aged Out No long er eligible based on patient's age to complete this topic HIB VACCINES Aged Out No longer eligi ble based on patient's age to complete this topic MENINGOCOCCAL VACCINES (ACWY) Aged Out No longer eligible based on patient's age to complete this topic MENINGOCOCCAL VACCINES (B) Aged Out N o longer eligible based on patient's age to complete this topic Medical Devices Not on file Insurance MEDICARE PART A & B [employer] MEDICARE SUPPLEMENT MEDICARE PART A & B [employer] MEDICARE SUPPLEMENT [facility] Address: [address] [address] MEDICARE PART A & B FOR LIFE MEDICARE SUPPLEMENT [facility] Address: [address] [address] MEDICARE PART A & B [employer] [facility] FOR [employer] MEDICARE SUPPLEMENT [facility] Address: [address] [address] MEDICARE PART A & B [employer] [facility] MEDICARE SUPPLEMENT MEDICARE PART A & B FOR LIFE MEDICARE SUPPLEMENT [facility] Address: [address] [place] [phone] [place] [address] Care Teams Drug And Alcohol Treatment Specialist Relationship Specialty Start Date End Date Vi Díaz PA [address] [place] [address] [place] [phone] PCP - General Physician Mud Analysis Operator 01/21/25 Additional Source Comments The information contained in this document represents components of the legal health record. It is not the complete legal health record.[facility]
[2025-03-14 14:23] LABS: Hematocrit 48.4 % (37.0-47.0); Hemoglobin 15.8 g/dl (12.0-16.0); Mean Corpuscular HGB Conc 32.6 g/dl (31.0-35.0); Mean Corpuscular Hemoglobin 28.5 pg (27.0-33.0); Mean Corpuscular Volume 87.2 fL (80.0-98.0); NRBC Abs Auto 0.000 X10*3/uL (0.0-0.012); NRBC Pct Auto 0.0 /100WBC (0.0-0.2); Platelet Count 238 X10*3/uL (160-400); Red Blood Count 5.55 X10*6/uL (4.20-5.50); White Blood Count 6.7 X10*3/uL (4.8-10.8)
[2025-03-14 14:34] LABS: Anion Gap 13 (12-20); Blood Urea Nitrogen 11 mg/dL (9-16); Calcium 9.3 mg/dL (8.4-10.2); Carbon Dioxide 27 mmol/L (22-29); Chloride 107 mmol/L (96-108); Cholesterol 188 mg/dL (<200); Estimated Glomerular Filt Rate > 60; HDL Cholesterol 73 mg/dL (>40); Iron 222 mcg/dL (30-160); Percent Iron Saturation 81 % (15-50); Potassium 3.6 mmol/L (3.3-5.1); Sodium 143 mmol/L (135-145); Total Iron Binding Capacity 275 mcg/dL (228-428); Triglycerides 138 mg/dL (<150); Unsaturated Iron Binding 53 ug/dL
== END 2025-03-14 11:09 | disposition home or self-care (01) ==
LOC: HO.HMGCLDS 11:08
PROVIDERS: PCP Family Medicine; Visit Provider Physician Assistant Medical
DX: Z13.6 Encounter for screening for cardiovascular disorders (principal); Z13.0 Encounter for screening for diseases of the blood and blood-forming organs and certain disorders involving the immune mechanism
CPT/HCPCS: 36415; 80048; 80061; 83540; 85027

== ENCOUNTER 2025-03-17 13:12 | Outpatient (AMB) | payer MEDICARE, OTHER, SELFPAY ==
--- NOTE | 2025-03-17 13:13 | MHC.OFFVIS ---
Vital Signs 03/17/25 13:16 Height 5 ft 6 in Weight 201 lb BMI 32.4 BP 134/75 Blood Pressure Location Lt brachial Position Sitting Respiration 16 Pulse 91 Pulse Source Pulse Oximeter Pulse Oximetry (%) 96 Oxygen Delivery Method Room Air Intake Visit Reasons: s/p TFESI Packager Machine Required: No Allergies No Known Allergies Allergy (Verified 03/17/25 13:17) Medication List - Last Reconciled 03/17/25 by Suni Sharp LPN atorvastatin 10 mg PO DAILY bupropion HCl SR 200 mg PO DAILY doxycycline monohydrate 100 mg PO DAILY gabapentin 1,200 mg PO DAILY lorazepam 1 mg PO TID PRN oxycodone 5 mg PO DAILY PRN propranolol ER 60 mg PO DAILY quetiapine (Seroquel) 25 mg PO BID PRN sumatriptan succinate (Imitrex) 100 mg PO DAILY PRN triamterene-hydrochlorothiazid 37.5-25 mg 37.5 mg; HPI HPI s/p TFESI: Details: History of Present Illness The patient is a 74 year old individual presenting for follow-up on a transforaminal epidural steroid injection for chronic pain. The injection was performed in January and provided good relief, with the patient reporting the ability to now walk without a cane, whereas a walker was previously required due to intense pain. The patient reports persistent pain in the medial thigh. The patient also has a history of chronic low back pain, described as an ache localized to the tailbone area in the midline, which is less bothersome than the leg pain was. Regarding the last procedure, the patient found it to be very painful despite receiving oxycodone 5 mg for sedation and is willing to undergo it again for the relief obtained. The patient's insurance is Medicare with a supplemental plan. Pain Description - Location: The patient reports persistent pain in the medial thigh and an achy pain in the lower back, specifically the tailbone area. - Severity/Impact: The leg pain has significantly improved post-injection, to the point the patient no longer needs a cane or walker for ambulation. - Comparison: The low back pain is noted to be less severe than the leg pain was. - Procedural Pain: The patient described the prior injection procedure as really painful. Physical Exam - Appears afebrile. - Alert and oriented. - Mood and affect appropriate. - Follows and participates in conversation appropriately. - Respiratory effort is unlabored. Pain Management - Analgesia: The patient received a transforaminal epidural injection in January with good pain relief. - Affect: The patient is happy with the results of the injection. - Activities of Daily Living: The patient's mobility has significantly improved, progressing from using a walker to ambulating without a cane. - Adverse Effects: The patient found the prior procedure to be significantly painful with a half dose of oxycodone. - Aberrant Drug-Related Behaviors: No aberrant behaviors were noted. [facility] Medical History (Updated 12/03/24 @ 13:43 by Nickolas Dsouza MD) Symptomatic anemia Migraine Severe anemia Bipolar 1 disorder Surgical History Hx of eye surgery Hx of tonsillectomy Hx of endoscopy Hx of colonoscopy Hx of hysterectomy Family History Father No problems noted. Mother No problems noted. Sister Hx of melanoma excision Social History Household Members: Spouse Housing: House Alcohol intake: current Alcohol intake frequency: other Comment: eating bahamian ice @ this time. 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 Physical Exam Vital Signs: Last Vital Signs Pulse 91 03/17/25 13:16 Resp 16 03/17/25 13:16 BP 134/75 03/17/25 13:16 Pulse Ox 96 03/17/25 13:16 Oxygen Delivery Method Room Air 03/17/25 13:16 BMI result Body Mass Index 32.4 Assessment & Plan Assessment & Plan (1) Chronic back pain: Code(s): M54.9 - Dorsalgia, unspecified; G89.29 - Other chronic pain Category: Medical Qualifiers: Back pain location: low back pain Back pain laterality: left Sciatica presence: with sciatica Sciatica laterality: sciatica of left side Qualified Code(s): M54.42 - Lumbago with sciatica, left side; G89.29 - Other chronic pain (2) Lumbar radiculopathy: Code(s): M54.16 - Radiculopathy, lumbar region Category: Medical Plan Plan Patient was informed and verbally consented to the use of an ambient scribe for clinic note documentation during this visit. 1. Chronic Lower Extremity Radicular Pain - The patient has experienced good relief from a transforaminal epidural steroid injection. - The patient is to call and schedule a repeat injection when the pain returns to a bothersome level. - The minimum waiting period between injections is three months. - For the next procedure, the patient will be prescribed oxycodone 10 mg for procedural analgesia, an increase from the previous 5 mg dose. 2. Chronic Low Back Pain - This is considered a separate problem from the radicular leg pain and would require a different type of intervention. - A brochure was provided for a temporary medial branch nerve stimulator device as a potential treatment option for chronic axial LBP. - The patient was advised to consider this option if the back pain worsens and to follow up to discuss it further. Discussion Notes I discussed the patient's positive response to the transforaminal epidural steroid injection performed in January, acknowledging the significant improvement in mobility. We agreed that the patient will schedule a repeat injection when the pain returns, respecting the typical three-month insurance-mandated interval. To manage procedural discomfort, I agreed to increase the pre-procedure oxycodone dose to 10 mg for the next injection, as the patient reported the prior 5 mg dose was insufficient. We also addressed the separate issue of chronic low back pain. I provided informational material on a temporary spinal cord stimulator as a potential future treatment, explaining it is a needle-based procedure where a device stays in for two months. I instructed the patient to review the information and follow up if the back pain worsens to a point where intervention is desired. Patient Instructions - Continue to enjoy the pain relief from your last injection. - When your leg pain comes back and becomes bothersome, please call the office to schedule your next injection. - Be aware that your insurance requires at least three months to pass between injections. - For your next injection, you will receive a higher dose of pain medication (10 mg of oxycodone) to make the procedure more comfortable. - I have given you a brochure about a temporary pain device for your low back pain. Please read it. - If your low back pain gets bad enough that you want to have a procedure for it, please call us to make an appointment. Coding Level of Care Code Est Pt Level 4 (83283) Diagnoses Chronic left-sided low back pain with left-sided sciatica M54.42; G89.29 Back pain location: low back pain Back pain laterality: left Sciatica presence: with sciatica Sciatica laterality: sciatica of left side Lumbar radiculopathy M54.16
[2025-03-17 13:16] VITALS: BP 134/75; PULSE 91; RESP 16; O2SAT 96; BMI 32.4
--- OUTSIDE RECORDS SUMMARY | 2025-03-17 16:52 | XMS_ITS | Clinical Summary ---
Author Organization [facility] Address [address] [facility] [address] [place] [id number] Phone Care Team Providers Care Reconciliation Clerk Name Role Phone Vi Díaz Primary Care Provider [phone]- [phone] Encounters Date Type Department Care Team Description 01/21/2025 Transcribe Orders Virtual Department [address] [place] [address] Vi Díaz PA Asymptomatic menopausal state (Primary [...] Info) Description 06/18/2025 1:45 PM EST Appointment [facility], [facility] [address] [place] [address] Vi Díaz PA [address] [place] [id number] Health Maintenance Due Date Last Done Comments [...] file Insurance MEDICARE PART A & B [employer] MEDICARE SUPPLEMENT MEDICARE PART A & B [employer] MEDICARE SUPPLEMENT MEDICARE PART A & B [employer] MEDICARE SUPPLEMENT MEDICARE PART A & B [facility] FOR [facility] MEDICARE SUPPLEMENT MEDICARE PART A & B [facility] [employer] MEDICARE SUPPLEMENT MEDICARE PART A & [place] [id number] Care Teams Reconciliation Clerk Relationship Specialty Start Date End Date Vi Díaz PA [address] [place] [address] [place] [address] PCP - General Physician Crushed Stone Grader 01/21/25 Additional Source Comments The information contained in this document represents components of the legal health record. It is not the complete legal health record.[facility]
--- OUTSIDE RECORDS SUMMARY | 2025-03-17 16:52 | XMS_ITS | Encounter Summary ---
Author Organization [facility] Address [address] [facility] [address] [place] [id number] Phone Care Team Providers Care Entry Level Electrical Engineer Name Role Phone Vi Díaz Primary Care Provider [phone]- [phone] Encounter Details Date Type Department Care Team (Latest Contact Info) Description 01/21/2025 Transcribe Orders Virtual Department [address] [place], [place] [id number] Vi Díaz PA [address] [place] [...] Info) Description 06/18/2025 1:45 PM EST Appointment [facility], [facility] [address] [place] [address] Vi Díaz PA [address] [place] [address] Scheduled Orders Name Type Priority Associated Diagnoses Orde r Schedule DXA Screening Imaging Routine Asymptomatic menopausal state Expected: 02/20/2025, Expires: 01/21/2026 documented as of this encounter Visit Diagnoses Diagnosis Asymptomatic menopausal state- Primary documented in this encounter Care Teams Entry Level Electrical Engineer Relationship Specialty Start Date End Date Vi Díaz PA [address] [place] [address] PCP - General Physician Operating Room Assistant 01/21/25 documented as of this encounter Additional Source Comments The information contained in this document represents components of the legal health record. It is not the complete legal health record.[facility]
== END 2025-03-17 13:24 | disposition home or self-care (01) ==
LOC: HO.PMC 13:12
PROVIDERS: PCP Family Medicine; Visit Provider Internal Medicine
DX: M54.42 Lumbago with sciatica, left side (principal); G89.29 Other chronic pain; M54.16 Radiculopathy, lumbar region
CPT/HCPCS: 99214

== ENCOUNTER → 2025-03-17 13:12 | Outpatient (BNVA) | payer MEDICARE, OTHER, SELFPAY | PROVIDERS: PCP Family Medicine; Visit Provider Internal Medicine | DX: M54.42 Lumbago with sciatica, left side (principal); G89.29 Other chronic pain; M54.16 Radiculopathy, lumbar region | CPT/HCPCS: 99212 ==